=== PATIENT | male | born 1960 | race Caucasian/White ===

== ENCOUNTER 2018-08-08 23:31 | Emergency (ER) | payer SELFPAY ==
[2018-08-09] MEDS ORDERED: IBUPROFEN 400 MG TAB PO STA (00:09)
[2018-08-09] MEDS ORDERED: CLINDAMYCIN 150 MG CAP PO STA (00:10)
[2018-08-09] MEDS ORDERED: FAMOTIDINE 20 MG TAB PO STA (00:11)
[2018-08-09] MEDS ORDERED: diphenhydrAMINE 25 MG CAP PO STA (00:45)
[2018-08-09 00:51] VITALS: BP 176/83; PULSE 84; RESP 16; TEMP 97.5
--- NOTE | 2018-08-09 01:03 | ED ---
General Adult HPI - General Chief complaint: Chest Pain Stated complaint: Swollen tongue Time Seen by Provider: 08/09/18 00:00 Source: patient, RN notes reviewed Mode of arrival: ambulatory Limitations: no limitations - History of Present Illness Initial comments: This is a 58-year-old male who presents with complaints of swelling below his tongue this started earlier today he also has some chest pain today complaining of a states he was playing golf all day and believes he sore because of that. He states he has some bad teeth is inflammation of his gums that he is going to be seeing a dentist before when he gets back home to [place]. He denies any fevers chills nausea vomiting sweats or other symptoms at this time he does have aspirin ALLERGIES he is able to take Motrin without any problem he does have ALLERGIES to cephalexin. He does state he's been on clindamycin before. - Related Data Previous Rx's Medication Instructions Recorded Clindamycin [Cleocin] 150 mg PO Q6H #40 capsule 08/09/18 methylPREDNISolone Dose Pack 4 mg PO DIRECTED #21 package 08/09/18 [Medrol Dose Pack] Allergies Allergy/AdvReac Type Severity Reaction Status Date / Time aspirin Allergy Nausea & Verified 08/08/18 23:48 Vomiting & Diarrhea cephalexin [From Keflex] Allergy Rash/Hives Verified 08/08/18 23:48 Review of Systems ROS Statement: Those systems with pertinent positive or pertinent negative responses have been documented in the HPI. ROS Other: All systems not noted in ROS Statement are negative. Past Medical History Past Medical History: Diabetes Mellitus, Hyperlipidemia, Hypertension, Liver Disease Additional Past Medical History / Comment(s): tremors History of Any Multi-Drug Resistant Organisms: None Reported Past Surgical History: Cholecystectomy Past Psychological History: No Psychological Hx Reported Smoking Status: Current every day smoker Past Alcohol Use History: Occasional Past Drug Use History: None Reported General Exam - General Exam Comments Initial Comments: This is a well-developed well-nourished awake alert oriented 3 male Limitations: no limitations General appearance: alert, in no apparent distress Head exam: Present: atraumatic, normocephalic, normal inspection Eye exam: Present: normal appearance, PERRL, EOMI. Absent: scleral icterus, conjunctival injection, periorbital swelling ENT exam: Present: mucous membranes moist, other (Is evidence of edema to the floor the mouth inferior to the tongue. No open wounds or some evidence of gingival inflammation with eroded lower incisors.) Neck exam: Present: normal inspection, full ROM, other (Stridor JVD or bruits). Absent: tenderness, meningismus, lymphadenopathy Respiratory exam: Present: normal lung sounds bilaterally, chest wall tenderness (Reproducible tenderness palpation of the costochondral margin especially on the right also over the pectoralis muscles.). Absent: respiratory distress, wheezes, rales, rhonchi, stridor Cardiovascular Exam: Present: regular rate, normal rhythm, normal heart sounds. Absent: systolic murmur, diastolic murmur, rubs, gallop, clicks GI/Abdominal exam: Present: soft, normal bowel sounds. Absent: distended, tenderness, guarding, rebound, rigid Extremities exam: Present: normal inspection, full ROM, normal capillary refill. Absent: tenderness, pedal edema, joint swelling, calf tenderness Back exam: Present: normal inspection Neurological exam: Present: alert, oriented X3, CN II-XII intact Psychiatric exam: Present: normal affect, normal mood Skin exam: Present: warm, dry, intact, normal color. Absent: rash Course Vital Signs 08/08/18 23:44 Temperature 98.5 F Pulse Rate 96 Respiratory 18 Rate Blood Pressure 181/90 O2 Sat by Pulse 95 Oximetry EKG Findings - EKG Results: EKG: interpreted by SUPRIYA, sinus rhythm (Sinus rhythm rate of 91. Interval 140 QRS duration 84 QT since QTC 340/418 specific configuration in leads 1 and 3) Medical Decision Making - Medical Decision Making I did discuss the findings and the presentation with the patient including EKG findings which does seem to show evidence of an S-wave in 1 and a prominent Q- wave in lead 3 patient does not want to pursue any further evaluation at this time even though I did inform him that this at times can represent findings of a blood clot in the lung. He just this and wants to be treated for the inflammation is experiencing in his oral cavity will be discharged is agreed to accept the possible consequences of not pursuing any further testing. Disposition Clinical Impression: Gingivitis, Chest wall pain, Chest wall syndrome Disposition: HOME SELF-CARE Condition: Good Instructions (If sedation given, give patient instructions): Costochondritis (ED), Gingivitis (ED) Prescriptions: Clindamycin [Cleocin] 150 mg PO Q6H #40 capsule methylPREDNISolone Dose Pack [Medrol Dose Pack] 4 mg PO DIRECTED #21 package Is patient prescribed a controlled substance at d/c from ED?: No Referrals: None,Stated [Primary Care Provider] - 1-2 days
== END 2018-08-09 00:59 | disposition home or self-care (01) ==
LOC: EC 23:31
DX: R07.1 Chest pain on breathing (principal); R07.89 Other chest pain; K05.10 Chronic gingivitis, plaque induced; F17.200 Nicotine dependence, unspecified, uncomplicated; Z88.1 Allergy status to other antibiotic agents; Z88.6 Allergy status to analgesic agent
CPT/HCPCS: 99284

== ENCOUNTER → 2021-01-30 | Outpatient (CLI) | payer BC ==
[~2021-01-30] MED LIST: REGADENOSON 0.4 MG/5 ML SYRINGE IV ONE
--- NOTE | 2021-01-31 12:38 | NM ---
EXAMINATION TYPE: NM stress lexiscan cardiolite DATE OF EXAM: 01/31/2021 COMPARISON: NONE HISTORY: Chest pain TECHNIQUE: After the intravenous administration of 9.4 mCi Tc 99m Sestamibi - Cardiolite resting SPE CT images acquired 45 minutes post injection. The patient received 0.4mg Lexiscan, 26 mCi Tc 99m Sestamibi - Stress images obtained 40 minutes post injection FINDINGS: Review of stress and rest SPECT images demonstrates no distinct perfusion abnormality. Gated analysi s shows normal wall motion with an estimated left ventricular ejection fraction of 66 %. IMPRESSION: No scintigraphic evidence for reversible ischemia.
--- NOTE | 2021-02-01 14:51 | EST ---
EXERCISE STRESS AGE: 60 SEX: M HT: 5'8" WT: 190 lbs. PROTOCOL: Lexiscan STAGE: NA DURATION OF EXERCISE: NA HEART RATE REST: 71 BLOOD PRESSURE REST: 143/75 MAXIMUM HEART RATE ACHIEVED: 91 MAXIMUM BLOOD PRESSURE: 143/75 85% MPHR: 138 100% MPHR: 162 METS: NA INDICATIONS: Chest pain RESULTS: Baseline EKG revealed normal sinus rhythm with inferolateral ST-T abnormality. With Lexiscan administration, heart rate changed from 71-89 beats per minute. Blood pressure changed from 143/70 to 133/79. EKG remained inconclusive. Patient did not have any significant symptoms. By EKG criteria, this is an inconclusive Lexiscan stress test because of resting EKG changes. The nuclear scan results will be reported by the radiologist. TONI / JORGEN: [id number] /
== END | disposition home or self-care (01) ==
LOC: RADNMMAIN 08:05
PROVIDERS: ATTEND Family Medicine
DX: R07.9 Chest pain, unspecified (principal); I73.9 Peripheral vascular disease, unspecified; G25.0 Essential tremor
CPT/HCPCS: 93017; 78452; A9500

== ENCOUNTER 2021-03-27 03:38 | Emergency (ER) | payer BC ==
[2021-03-27 04:04] VITALS: TEMP 98.2
--- NOTE | 2021-03-27 04:15 | XR ---
EXAMINATION TYPE: XR chest 2V DATE OF EXAM: 03/27/2021 COMPARISON: NONE HISTORY: Cough TECHNIQUE: 2 views FINDINGS: There is some mild atelectasis right lung base. There is elevated right diaphragm. There ar e no hilar masses. Heart size is normal. There is no heart failure. There are chest leads. Bony thora x is intact IMPRESSION: There is some elevation of the right diaphragm with right basilar mild atelectasis. This could relate to some diaphragm paralysis. Normal heart.
[2021-03-27 04:20] LABS: Basophils # (A) 0.1 k/uL (0-0.2); Basophils % (A) 1 %; Eosinophils # (A) 0.1 k/uL (0-0.7); Eosinophils % (A) 1 %; Lymphocytes # (A) 2.5 k/uL (1.0-4.8); Lymphocytes % (A) 24 %; MCHC 34.2 g/dL (31.0-37.0); MCV 108.1 fL (80.0-100.0); Macrocytosis Moderate; Mean Platelet Volume 8.8; Monocytes # (A) 0.7 k/uL (0-1.0); Monocytes % (A) 6 %; Neutrophils # (A) 6.7 k/uL (1.3-7.7); Neutrophils % (A) 66 %; Platelet Count 150 k/uL (150-450); RDW 12.3 % (11.5-15.5); WBC 10.3 k/uL (3.8-10.6)
[2021-03-27 04:32] LABS: ALT 53 U/L (4-49); AST 59 U/L (17-59); African American GFR (CKD) >90 (>60 ml/min/1.73 sqM); Albumin 3.8 g/dL (3.5-5.0); Alkaline Phosphatase 67 U/L (38-126); Anion Gap 10 mmol/L; Blood Urea Nitrogen 16 mg/dL (9-20); Calcium 10.6 mg/dL (8.4-10.2); Carbon Dioxide 24 mmol/L (22-30); Chloride 103 mmol/L (98-107); Glucose 345 mg/dL (74-99); Magnesium 1.2 mg/dL (1.6-2.3); Non-African American GFR(CKD) >90 (>60 ml/min/1.73 sqM); Potassium 3.9 mmol/L (3.5-5.1); Sodium 137 mmol/L (137-145); Total Bilirubin 0.5 mg/dL (0.2-1.3)
[2021-03-27 04:39] LABS: Partial Thromboplastin Time 24.6 sec (22.0-30.0)
[2021-03-27 05:14] VITALS: BP 151/75; PULSE 64; RESP 18
[2021-03-27] MEDS ORDERED: SODIUM CHLORIDE 0.9% 1,000 ML IV ONE (05:19)
[2021-03-27] MEDS ORDERED: INSULIN REGULAR 100 UNIT/ML VIAL (IV) IV STA (05:19)
[2021-03-27 05:22] LABS: INR 1.1 (<1.2); Prothrombin Time 11.5 sec (9.0-12.0)
[2021-03-27] MEDS ORDERED: MAGNESIUM SULFATE-D5W PMX 1 GM in DEXTROSE/WATER 1 100ML.BAG IVPB ONE (05:55)
--- NOTE | 2021-03-27 06:21 | ED ---
Arrhythmia/Palpitations HPI - General Chief Complaint: Arrhythmia/Palpitations Stated Complaint: Chest Pain Time Seen by Provider: 03/27/21 03:53 Source: patient, EMS Mode of arrival: EMS Limitations: no limitations - History of Present Illness Initial Comments: This patient is 61-year-old man who presents with complaint that his heart was pounding and irregular. EMS was called and they report that the patient was in atrial fibrillation with a first placed him on the monitor. They report that the patient spontaneously converted after arriving here. Patient denies chest pain, diaphoresis, nausea or vomiting. Patient did have some dyspnea that he attributed to he states underlying asthma. He had taken albuterol. He states his breathing has resolved MD Complaint: rapid heart beat, irregular heart beat -: hour(s) Context: occurred during rest Associated Symptoms: denies other symptoms - Related Data Home Medications Medication Instructions Recorded Confirmed ALPRAZolam [Xanax] 0.5 mg PO DAILY PRN 03/27/21 03/27/21 Albuterol Sulfate [Ventolin HFA] 1 - 2 puff INHALATION RT-Q6H PRN 03/27/21 03/27/21 Atorvastatin Calcium [Lipitor] 20 mg PO HS 03/27/21 03/27/21 Escitalopram [Lexapro] 10 mg PO HS 03/27/21 03/27/21 Insulin Lispro [humaLOG Kwikpen] 18 - 22 unit SQ AC-BID 03/27/21 03/27/21 Metoprolol Succinate (ER) [Toprol 100 mg PO HS 03/27/21 03/27/21 Xl] Steroid Inhaler (Unknown) 1 dose INHALATION DIRECTED PRN 03/27/21 03/27/21 Topiramate [Topamax] 25 mg PO HS 03/27/21 03/27/21 traZODone HCL 50 mg PO HS 03/27/21 03/27/21 Previous Rx's Medication Instructions Recorded Magnesium Oxide [Mag-Ox] 400 mg PO DAILY #20 tablet 03/27/21 Allergies Allergy/AdvReac Type Severity Reaction Status Date / Time cephalexin [From Keflex] Allergy Rash/Hives Verified 03/27/21 06:35 aspirin AdvReac Nausea & Verified 03/27/21 06:35 Vomiting & Diarrhea Review of Systems ROS Statement: Those systems with pertinent positive or pertinent negative responses have been documented in the HPI. ROS Other: All systems not noted in ROS Statement are negative. Constitutional: Denies: fever, chills Respiratory: Reports: as per HPI, dyspnea. Denies: cough Cardiovascular: Reports: palpitations. Denies: chest pain, edema, syncope Gastrointestinal: Denies: abdominal pain, vomiting, diarrhea Genitourinary: Denies: dysuria, hematuria Musculoskeletal: Denies: back pain Skin: Denies: rash Neurological: Denies: headache, weakness, numbness Psychiatric: Reports: anxiety Past Medical History Past Medical History: Diabetes Mellitus, Hyperlipidemia, Hypertension, Liver Disease Additional Past Medical History / Comment(s): tremors History of Any Multi-Drug Resistant Organisms: None Reported Past Surgical History: Cholecystectomy Past Psychological History: No Psychological Hx Reported Past Alcohol Use History: Occasional Past Drug Use History: None Reported General Exam Limitations: no limitations General appearance: alert, in no apparent distress Head exam: Present: atraumatic, normocephalic Eye exam: Present: normal appearance. Absent: scleral icterus, conjunctival injection ENT exam: Present: normal oropharynx Neck exam: Present: normal inspection Respiratory exam: Present: normal lung sounds bilaterally. Absent: respiratory distress, wheezes, rales, rhonchi, stridor Cardiovascular Exam: Present: regular rate, normal rhythm, normal heart sounds. Absent: systolic murmur, diastolic murmur, rubs, gallop GI/Abdominal exam: Present: soft. Absent: distended, tenderness, guarding, rebound, rigid, mass Extremities exam: Present: normal inspection, normal capillary refill. Absent: pedal edema, calf tenderness Back exam: Present: normal inspection. Absent: CVA tenderness (R), CVA tenderness (L) Neurological exam: Present: alert Skin exam: Present: warm, dry, intact, normal color. Absent: rash Course Vital Signs 03/27/21 03/27/21 03:58 05:08 Temperature 98.2 F Pulse Rate 72 64 Respiratory 16 18 Rate Blood Pressure 162/90 151/75 O2 Sat by Pulse 98 98 Oximetry EKG Findings - EKG Results: EKG: interpreted by SUPRIYA, sinus rhythm (Rate 76 bpm), normal axis, normal QRS - Blocks, [place], Hypertrophy, ST Abn: Repolarization changes or abnormalities: nonspecific abnormality, ST segment, and/or T wave Medical Decision Making - Medical Decision Making Patient is 61-year-old man brought to have evaluation of palpitations and some dyspnea. The patient is feeling back at his baseline and is in normal sinus rhythm here. The patient may have had episode of atrial fibrillation and discussed appropriate further care and follow-up with cardiology, but he does not want stay in the hospital to have evaluation. - Lab Data Result diagrams: 03/27/21 03:50 03/27/21 03:50 Lab Results 03/27/21 03/27/21 03/27/21 Range/Units 03:50 03:50 03:50 WBC 10.3 (3.8-10.6) k/uL RBC 3.80 L (4.30-5.90) m/uL Hgb 14.0 (13.0-17.5) gm/dL Hct 41.0 (39.0-53.0) % MCV 108.1 H (80.0-100.0) fL MCH 37.0 H (25.0-35.0) pg MCHC 34.2 (31.0-37.0) g/dL RDW 12.3 (11.5-15.5) % Plt Count 150 (150-450) k/uL MPV 8.8 Neutrophils % 66 % Lymphocytes % 24 % Monocytes % 6 % Eosinophils % 1 % Basophils % 1 % Neutrophils # 6.7 (1.3-7.7) k/uL Lymphocytes # 2.5 (1.0-4.8) k/uL Monocytes # 0.7 (0-1.0) k/uL Eosinophils # 0.1 (0-0.7) k/uL Basophils # 0.1 (0-0.2) k/uL Macrocytosis Moderate PT 11.5 (9.0-12.0) sec INR 1.1 (<1.2) APTT 24.6 (22.0-30.0) sec Sodium 137 (137-145) mmol/L Potassium 3.9 (3.5-5.1) mmol/L Chloride 103 (98-107) mmol/L Carbon Dioxide 24 (22-30) mmol/L Anion Gap 10 mmol/L BUN 16 (9-20) mg/dL Creatinine 0.85 (0.66-1.25) mg/dL Est GFR (CKD-EPI)AfAm >90 (>60 ml/min/1.73 sqM) Est GFR (CKD-EPI)NonAf >90 (>60 ml/min/1.73 sqM) Glucose 345 H (74-99) mg/dL POC Glucose (mg/dL) (75-99) mg/dL POC Glu Cement Block Maker ID Calcium 10.6 H (8.4-10.2) mg/dL Magnesium 1.2 L (1.6-2.3) mg/dL Total Bilirubin 0.5 (0.2-1.3) mg/dL AST 59 (17-59) U/L ALT 53 H (4-49) U/L Alkaline Phosphatase 67 (38-126) U/L Troponin I (0.000-0.034) ng/mL Total Protein 7.0 (6.3-8.2) g/dL Albumin 3.8 (3.5-5.0) g/dL 03/27/21 03/27/21 Range/Units 03:50 07:03 WBC (3.8-10.6) k/uL RBC (4.30-5.90) m/uL Hgb (13.0-17.5) gm/dL Hct (39.0-53.0) % MCV (80.0-100.0) fL MCH (25.0-35.0) pg MCHC (31.0-37.0) g/dL RDW (11.5-15.5) % Plt Count (150-450) k/uL MPV Neutrophils % % Lymphocytes % % Monocytes % % Eosinophils % % Basophils % % Neutrophils # (1.3-7.7) k/uL Lymphocytes # (1.0-4.8) k/uL Monocytes # (0-1.0) k/uL Eosinophils # (0-0.7) k/uL Basophils # (0-0.2) k/uL Macrocytosis PT (9.0-12.0) sec INR (<1.2) APTT (22.0-30.0) sec Sodium (137-145) mmol/L Potassium (3.5-5.1) mmol/L Chloride (98-107) mmol/L Carbon Dioxide (22-30) mmol/L Anion Gap mmol/L BUN (9-20) mg/dL Creatinine (0.66-1.25) mg/dL Est GFR (CKD-EPI)AfAm (>60 ml/min/1.73 sqM) Est GFR (CKD-EPI)NonAf (>60 ml/min/1.73 sqM) Glucose (74-99) mg/dL POC Glucose (mg/dL) 207 H (75-99) mg/dL POC Glu Cement Block Maker Graeme Larkin Calcium (8.4-10.2) mg/dL Magnesium (1.6-2.3) mg/dL Total Bilirubin (0.2-1.3) mg/dL AST (17-59) U/L ALT (4-49) U/L Alkaline Phosphatase (38-126) U/L Troponin I <0.012 (0.000-0.034) ng/mL Total Protein (6.3-8.2) g/dL Albumin (3.5-5.0) g/dL Disposition Clinical Impression: Paroxysmal atrial fibrillation with RVR, Hyperglycemia, Hypomagnesemia Disposition: HOME SELF-CARE Condition: Good Instructions (If sedation given, give patient instructions): A-fib (Atrial Fibrillation) (ED) Prescriptions: Magnesium Oxide [Mag-Ox] 400 mg PO DAILY #20 tablet Is patient prescribed a controlled substance at d/c from ED?: No Referrals: Mateo Milton MD [Primary Care Provider] - 1-2 days Jeromy Chen MD [STAFF PHYSICIAN] - 1-2 days
[2021-03-27 07:04] LABS: Glucose,Whole Blood 207 mg/dL (75-99)
== END 2021-03-27 07:05 | disposition home or self-care (01) ==
LOC: EC 03:38
DX: I48.0 Paroxysmal atrial fibrillation (principal); R07.9 Chest pain, unspecified; E83.42 Hypomagnesemia; E11.9 Type 2 diabetes mellitus without complications; I10 Essential (primary) hypertension; Z88.1 Allergy status to other antibiotic agents; Z88.6 Allergy status to analgesic agent
CPT/HCPCS: 99285 ×2; 96365 ×2; 36415; 93005; 80053; 83735; 84484; 85025; 85610; 85730; 71046; J3475

== ENCOUNTER 2022-11-05 11:16 | Emergency (ER) | payer BC, MEDICARE ==
[2022-11-05 11:22] VITALS: TEMP 97.9
[2022-11-05 11:43] VITALS: RESP 20
[2022-11-05 11:58] LABS: Basophils % (A) 0 %; Eosinophils # (A) 0.1 k/uL (0-0.7); Eosinophils % (A) 0 %; HCT 44.7 % (39.0-53.0); HGB 15.2 gm/dL (13.0-17.5); Lymphocytes # (A) 2.1 k/uL (1.0-4.8); Lymphocytes % (A) 16 %; MCH 34.2 pg (25.0-35.0); MCV 100.7 fL (80.0-100.0); Mean Platelet Volume 8.9; Monocytes # (A) 0.6 k/uL (0-1.0); Monocytes % (A) 5 %; Neutrophils # (A) 10.3 k/uL (1.3-7.7); Neutrophils % (A) 78 %; Platelet Count 220 k/uL (150-450); RBC 4.44 m/uL (4.30-5.90); RDW 13.1 % (11.5-15.5); WBC 13.3 k/uL (3.8-10.6)
[2022-11-05] MEDS ORDERED: SODIUM CHLORIDE 0.9% 1,000 ML IV STA (11:59)
--- NOTE | 2022-11-05 12:06 | ED ---
General Adult HPI - General Chief complaint: Abdominal Pain Stated complaint: Abd Pain Time Seen by Provider: 11/05/22 11:21 Source: patient, EMS Mode of arrival: EMS Limitations: no limitations - History of Present Illness Initial comments: Dictation was produced using [employer] dictation software. please excuse any grammatical, word or spelling errors. Chief Complaint: 62 y old male presents with pain History of Present Illness: Patient is 62-year-old male presents emergency department for abdominal pain. History of diabetes dyslipidemia hypertension number disease. Patient states that he is having chronic abdominal pain. He was seen at [facility] and seen GI specialist had multiple CTs with no abnormalities noted. Denies any nausea. States that is why abdomen. The ROS documented in this emergency department record has been reviewed and confirmed by me. Those systems with pertinent positive or negative responses have been documented in the HPI. All other systems are other negative and/or noncontributory. - Related Data Home Medications Medication Instructions Recorded Confirmed ALPRAZolam [Xanax] 0.5 mg PO DAILY PRN 03/27/21 03/27/21 Albuterol Sulfate [Ventolin HFA] 1 - 2 puff INHALATION RT-Q6H PRN 03/27/21 03/27/21 Atorvastatin Calcium [Lipitor] 20 mg PO HS 03/27/21 03/27/21 Escitalopram [Lexapro] 10 mg PO HS 03/27/21 03/27/21 Insulin Lispro [humaLOG Kwikpen] 18 - 22 unit SQ AC-BID 03/27/21 03/27/21 Metoprolol Succinate (ER) [Toprol 100 mg PO HS 03/27/21 03/27/21 Xl] Steroid Inhaler (Unknown) 1 dose INHALATION DIRECTED PRN 03/27/21 03/27/21 Topiramate [Topamax] 25 mg PO HS 03/27/21 03/27/21 traZODone HCL 50 mg PO HS 03/27/21 03/27/21 Previous Rx's Medication Instructions Recorded Magnesium Oxide [Mag-Ox] 400 mg PO DAILY #20 tablet 03/27/21 Morphine Sulfate Ir [MSIR] 15 mg PO Q8H PRN 3 Days #9 tab 11/05/22 Allergies Allergy/AdvReac Type Severity Reaction Status Date / Time cephalexin [From Keflex] Allergy Rash/Hives Verified 11/05/22 11:22 aspirin AdvReac Nausea & Verified 11/05/22 11:22 Vomiting & Diarrhea Review of Systems ROS Statement: Those systems with pertinent positive or pertinent negative responses have been documented in the HPI. ROS Other: All systems not noted in ROS Statement are negative. Past Medical History Past Medical History: Diabetes Mellitus, Hyperlipidemia, Hypertension, Liver Disease Additional Past Medical History / Comment(s): tremors History of Any Multi-Drug Resistant Organisms: None Reported Past Surgical History: Cholecystectomy Past Psychological History: No Psychological Hx Reported Smoking Status: Current every day smoker Past Alcohol Use History: Occasional Past Drug Use History: Marijuana General Exam - General Exam Comments Initial Comments: PHYSICAL EXAM: General Impression: Alert and oriented x3, not in acute distress, pinpoint pupils HEENT: Normocephalic atraumatic, extra-ocular movements intact, pupils equal and reactive to light bilaterally, mucous membranes moist. Cardiovascular: Heart regular rate and rhythm Chest: Able to complete full sentences, no retractions, no tachypnea Abdomen: abdomen soft, non-tender, non-distended, no organomegaly Musculoskeletal: Pulses present and equal in all extremities, no peripheral edema Motor: no focal deficits noted Neurological: CN II-XII grossly intact, no focal motor or sensory deficits noted Skin: Intact with no visualized rashes Psych: Normal affect and mood Limitations: no limitations Course Vital Signs 11/05/22 11/05/22 11/05/22 11:19 11:22 13:30 Temperature 97.9 F Pulse Rate 84 77 85 Respiratory 24 20 20 Rate Blood Pressure 159/113 169/101 149/100 O2 Sat by Pulse 100 98 97 Oximetry Medical Decision Making - Medical Decision Making Was pt. sent in by a medical professional or institution (, PA, RESOURCE AGENT, urgent care, hospital, or usp...) When possible be specific @ -No Did you speak to anyone other than the patient for history (EMS, parent, family, police, friend...)? What history was obtained from this source @ -No Did you review nursing and triage notes (agree or disagree)? Why? @ -I reviewed and agree with nursing and triage notes Were old charts reviewed (outside hosp., previous admission, EMS record, old EKG, old radiological studies, urgent care reports/EKG's, usp records)? Report findings @ -No old charts were reviewed Differential Diagnosis (chest pain, altered mental status, abdominal pain women, abdominal pain men, vaginal bleeding, musculoskeletal, weakness, fever, dyspnea, syncope, headache, dizziness, GI bleed, back pain, seizure, CVA, palpatations, mental health)? @ -Differential Abdominal Pain Men: Appendicitis, cholecystitis, diverticulosis, ischemic bowel, pancreatitis, hepatitis, UTI, gastroenteritis, AAA, incarcerated hernia, bowel obstruction, constipation, inflammatory bowel, hepatitis, peptic ulcer disease, splenic infarction, perforated viscus, testicular torsion, this is not meant to be an all-inclusive list EKG interpreted by me (3pts min.). @ -None done X-rays interpreted by me (1pt min.). @ -Abdominal x-ray shows no acute processes CT interpreted by me (1pt min.). @ -None done U/S interpreted by me (1pt. min.). @ -None done What testing was considered but not performed or refused? (CT, X-rays, U/S, labs)? Why? @ -None What meds were considered but not given or refused? Why? @ -None Did you discuss the management of the patient with other professionals (professionals i.e. , PA, RESOURCE AGENT, lab, RT, psych nurse, social work assistant, caustic plant worker, teacher, patient safety officer, case technician)? Give summary @ -No Was smoking cessation discussed for >3mins.? @ -No Was critical care preformed (if so, how long)? @ -No Were there social determinants of health that impacted care today? How? (Homelessness, low income, unemployed, alcoholism, drug addiction, transportation, low edu. Level, literacy, decrease access to med. care, senior living, rehab)? @ -No Was there de-escalation of care discussed even if they declined (Discuss DNR or withdrawal of care, Hospice)? DNR status @ -No What co-morbidities impacted this encounter? (DM, HTN, Smoking, COPD, CAD, Cancer, CVA, ARF, Chemo, Hep., AIDS, mental health diagnosis, sleep apnea, morbid obesity)? @ -None Was patient admitted / discharged? Hospital course, mention meds given and route, prescriptions, significant lab abnormalities, going to OR and other pertinent info. @ -62 y Old male presents emergency Department with acute on chronic abdominal pain. Patient has been evaluated on an outpatient basis by a specialist in no apparent answer for what is causing his symptoms. Laboratory evaluation is unremarkable. Vital signs within acceptable limits. X-rays negative. Disposition options were discussed. He is agreeable with discharge. He continues to contact GI specialist regarding his symptoms. He already been evaluated in the office has pending MRI. Return precautions discussed. Patient agreeable with disposition. Undiagnosed new problem with uncertain prognosis? @ -No Drug Therapy requiring intensive monitoring for toxicity (Heparin, Nitro, Insulin, Cardizem)? @ -No Were any procedures done? @ -No Diagnosis/symptom? Acute, or Chronic, or Acute on Chronic? Uncomplicated (without systemic symptoms) or Complicated (systemic symptoms)? @ -chronic abdominal pain Side effects of treatment? @ -No Exacerbation, Progression, or Severe Exacerbation? @ -No Poses a threat to life or bodily function? How? (Chest pain, [place], [place], pneumonia, PE, COPD, DKA, ARF, appy, cholecystitis, CVA, Diverticulitis, Homicidal, Suicidal, threat to staff... and all critical care pts) @ -No - Lab Data Result diagrams: 11/05/22 11:24 11/05/22 11:24 Lab Results 11/05/22 11/05/22 Range/Units 11:24 11:24 WBC 13.3 H (3.8-10.6) k/uL RBC 4.44 (4.30-5.90) m/uL Hgb 15.2 (13.0-17.5) gm/dL Hct 44.7 (39.0-53.0) % MCV 100.7 H (80.0-100.0) fL MCH 34.2 (25.0-35.0) pg MCHC 34.0 (31.0-37.0) g/dL RDW 13.1 (11.5-15.5) % Plt Count 220 (150-450) k/uL MPV 8.9 Neutrophils % 78 % Lymphocytes % 16 % Monocytes % 5 % Eosinophils % 0 % Basophils % 0 % Neutrophils # 10.3 H (1.3-7.7) k/uL Lymphocytes # 2.1 (1.0-4.8) k/uL Monocytes # 0.6 (0-1.0) k/uL Eosinophils # 0.1 (0-0.7) k/uL Basophils # 0.0 (0-0.2) k/uL Sodium 141 (137-145) mmol/L Potassium 4.4 (3.5-5.1) mmol/L Chloride 109 H (98-107) mmol/L Carbon Dioxide 18 L (22-30) mmol/L Anion Gap 14 mmol/L BUN 16 (9-20) mg/dL Creatinine 0.63 L (0.66-1.25) mg/dL Est GFR (CKD-EPI)AfAm >90 (>60 ml/min/1.73 sqM) Est GFR (CKD-EPI)NonAf >90 (>60 ml/min/1.73 sqM) Glucose 204 H (74-99) mg/dL Calcium 11.2 H (8.4-10.2) mg/dL Total Bilirubin 0.9 (0.2-1.3) mg/dL AST 27 (17-59) U/L ALT 23 (4-49) U/L Alkaline Phosphatase 96 (38-126) U/L Total Protein 8.8 H (6.3-8.2) g/dL Albumin 4.6 (3.5-5.0) g/dL Lipase 238 (23-300) U/L Disposition Clinical Impression: Abdominal pain Disposition: HOME SELF-CARE Condition: Fair Instructions (If sedation given, give patient instructions): Abdominal Pain (ED) Prescriptions: Morphine Sulfate Ir [MSIR] 15 mg PO Q8H PRN 3 Days #9 tab PRN Reason: Severe Pain Is patient prescribed a controlled substance at d/c from ED?: Yes If prescribed controlled substance>3 days was MAPS reviewed?: Prescribed <3 Days Referrals: Anjel Patel MD [Primary Care Provider] - 1-2 days Ellen Dumont MD [STAFF PHYSICIAN] - 1-2 days Time of Disposition: 14:30
[2022-11-05 12:09] LABS: ALT 23 U/L (4-49); AST 27 U/L (17-59); African American GFR (CKD) >90 (>60 ml/min/1.73 sqM); Albumin 4.6 g/dL (3.5-5.0); Alkaline Phosphatase 96 U/L (38-126); Anion Gap 14 mmol/L; Blood Urea Nitrogen 16 mg/dL (9-20); Calcium 11.2 mg/dL (8.4-10.2); Carbon Dioxide 18 mmol/L (22-30); Chloride 109 mmol/L (98-107); Glucose 204 mg/dL (74-99); Lipase 238 U/L (23-300); Non-African American GFR(CKD) >90 (>60 ml/min/1.73 sqM); Potassium 4.4 mmol/L (3.5-5.1); Sodium 141 mmol/L (137-145); Total Bilirubin 0.9 mg/dL (0.2-1.3); Total Protein 8.8 g/dL (6.3-8.2)
--- NOTE | 2022-11-05 12:33 | XR ---
EXAMINATION TYPE: XR abdomen 1V DATE OF EXAM: 11/05/2022 COMPARISON: NONE HISTORY: Abdominal pain TECHNIQUE: One view abdominal series FINDINGS: The osseous structures are intact. The bowel gas pattern is nonspecific. Scoliotic curve of the spin e with diffuse osteopenia and multilevel degenerative change. Elevation right hemidiaphragm. Bilatera l hip arthropathy. Vascular calcifications. Soft tissue calcification adjacent to right greater troch anter. IMPRESSION: 1. Nonspecific abdomen.
[2022-11-05 13:38] VITALS: BP 149/100; PULSE 85
[2022-11-05 14:34] LABS: Amphetamine Screen,Urine Not Detected (NotDetected); Barbiturate Screen,Urine Not Detected (NotDetected); Benzodiazepines Screen,Urine Not Detected (NotDetected); Cocaine Screen,Urine Not Detected (NotDetected); Methadone Screen, Urine Not Detected (NotDetected); Opiate Screen,Urine Detected (NotDetected); Oxycodone Screen, Urine Not Detected (NotDetected); Phencyclidine Screen,Urine Not Detected (NotDetected); Tricyclic Antidepressant,Urine Not Detected (NotDetected); Urn Cannabinoid Scrn Detected (NotDetected)
== END 2022-11-05 14:38 | disposition home or self-care (01) ==
LOC: EC 11:16
DX: R10.9 Unspecified abdominal pain (principal); E11.9 Type 2 diabetes mellitus without complications; E78.5 Hyperlipidemia, unspecified; I10 Essential (primary) hypertension; F17.200 Nicotine dependence, unspecified, uncomplicated; Z79.4 Long term (current) use of insulin; Z79.899 Other long term (current) drug therapy; Z88.6 Allergy status to analgesic agent; Z88.1 Allergy status to other antibiotic agents
CPT/HCPCS: 36415; 74018; 80053; 80306; 83690; 85025; 96360; 99284

== ENCOUNTER → 2022-11-07 | Outpatient (CLI) | payer BC, MEDICARE ==
--- NOTE | 2022-11-11 11:43 | MR ---
EXAMINATION TYPE: MR pancreas wo/w con DATE OF EXAM: 11/07/2022 10:28 AM CLINICAL INDICATION:Male, 62 years old with history of R10.9 abd pain; PHH, Abdomen pain COMPARISON: Ultrasound 09/02/2022 TECHNIQUE: Multiplanar multi-sequence imaging was performed without contrast. Post contrast imaging was performed. Post IV contrast subtraction images were also submitted for review. IV Contrast: 6.5 cc Gadavist FINDINGS: LOWER CHEST: No gross irregularity. ABDOMEN Liver: No evidence for hepatic steatosis or cirrhosis. High T2 signal lesions in the dome of the live r. These progressively enhance on delayed imaging. Findings suggestive of a benign etiology such as a hemangioma. Gallbladder and Bile ducts: There is a cystic duct remnant present. The common hepatic duct measures up to 8 mm. The common bile duct measures up to 8 mm. Some irregular wall tapering best appreciated o n series 301 image 25 near the papilla. Pancreas: No ductal dilation. No evidence for solid mass. Spleen: Normal for size. Adrenal glands: Unremarkable. Kidneys: No evidence for obstructive uropathy. No No suspicious renal masses. Stomach and Bowel: No evidence for bowel wall thickening or evidence for obstruction.. Peritoneum: No evidence of pneumoperitoneum or free fluid. Vasculature: No aortic aneurysm. Musculoskeletal: The osseous structures appear intact. Lymph Nodes: No gross evidence for lymphadenopathy. Abdominal wall: Unremarkable. IMPRESSION: 1. No evidence for acute process to explain the patient's pain. 2. Postcholecystectomy changes with appropriate dilation of the biliary system for post cholecystect jac physiology. Cystic duct remnant noted. 3. Irregular tapering near the papilla in the common bile duct. ERCP for direct visualization should be considered to rule out underlying lesion. 4. The main pancreatic duct and pancreas appear within normal limits. 5. Suspected hemangiomas in the dome of the liver on the right.
== END | disposition home or self-care (01) ==
LOC: RADMRIMAIN 09:19
PROVIDERS: ATTEND Internal Medicine Gastroenterology
DX: R10.9 Unspecified abdominal pain (principal); Z90.49 Acquired absence of other specified parts of digestive tract
CPT/HCPCS: 74183; A9585

== ENCOUNTER 2023-01-04 15:42 | Observation (INO) | payer BC, MEDICARE ==
[2023-01-04] MEDS ORDERED: ONDANSETRON 4 MG/2 ML VIAL IVP STA (16:18)
[2023-01-04] MEDS ORDERED: SODIUM CHLORIDE 0.9% 1,000 ML IV STA ×2 (16:18→18:40)
[2023-01-04] MEDS ORDERED: PANTOPRAZOLE 40 MG/10 ML VIAL IVP STA (16:18)
[2023-01-04] MEDS ORDERED: MORPHINE SULFATE 4 MG/ML SYRINGE IVP STA (16:19)
[2023-01-04 17:12] LABS: Basophils % (A) 0 %; Eosinophils # (A) 0.1 k/uL (0-0.7); Eosinophils % (A) 1 %; HCT 42.8 % (39.0-53.0); HGB 14.6 gm/dL (13.0-17.5); Lymphocytes # (A) 3.2 k/uL (1.0-4.8); Lymphocytes % (A) 26 %; MCH 34.1 pg (25.0-35.0); MCHC 34.1 g/dL (31.0-37.0); MCV 99.8 fL (80.0-100.0); Mean Platelet Volume 8.6; Monocytes # (A) 0.6 k/uL (0-1.0); Monocytes % (A) 5 %; Neutrophils # (A) 8.2 k/uL (1.3-7.7); Neutrophils % (A) 66 %; Platelet Count 283 k/uL (150-450); RBC 4.29 m/uL (4.30-5.90); RDW 13.2 % (11.5-15.5); WBC 12.5 k/uL (3.8-10.6)
--- NOTE | 2023-01-04 17:12 | ED ---
General Adult HPI - General Chief complaint: Abdominal Pain Stated complaint: sob losing weight stomach pain Time Seen by Provider: 01/04/23 15:55 Source: patient, RN notes reviewed, old records reviewed Mode of arrival: ambulatory Limitations: no limitations - History of Present Illness Initial comments: Patient is a 62-year-old male who presents emergency Department with chronic abdominal pain. States he has lost a significant amount of weight over the last multiple months. Has received an extensive workup outpatient for this intractable abdominal pain of unknown etiology. This includes EGDs, colonoscopies, MRIs, CTs, evaluation by GI specialist Dr. Dumont as well [facility]. No clear etiology for the symptoms at this time. Presents with continuing of his pain. Endorses mild nausea. Endorses diarrhea. Denies constipation. Prior history of alcohol abuse. Denies any chest pain or shortness of breath. No cardiac history. No urinary complaints. Endorses mild nausea at this time. Primary complaint is abdominal pain which he states is diffuse. It is unremarkable to home. Has no other acute complaints at this time. - Related Data Home Medications Medication Instructions Recorded Confirmed ALPRAZolam [Xanax] 0.5 mg PO DAILY PRN 03/27/21 03/27/21 Albuterol Sulfate [Ventolin HFA] 1 - 2 puff INHALATION RT-Q6H PRN 03/27/21 03/27/21 Atorvastatin Calcium [Lipitor] 20 mg PO HS 03/27/21 03/27/21 Escitalopram [Lexapro] 10 mg PO HS 03/27/21 03/27/21 Insulin Lispro [humaLOG Kwikpen] 18 - 22 unit SQ AC-BID 03/27/21 03/27/21 Metoprolol Succinate (ER) [Toprol 100 mg PO HS 03/27/21 03/27/21 Xl] Steroid Inhaler (Unknown) 1 dose INHALATION DIRECTED PRN 03/27/21 03/27/21 Topiramate [Topamax] 25 mg PO HS 03/27/21 03/27/21 traZODone HCL 50 mg PO HS 03/27/21 03/27/21 Previous Rx's Medication Instructions Recorded Magnesium Oxide [Mag-Ox] 400 mg PO DAILY #20 tablet 03/27/21 Morphine Sulfate Ir [MSIR] 15 mg PO Q8H PRN 3 Days #9 tab 11/05/22 Allergies Allergy/AdvReac Type Severity Reaction Status Date / Time cephalexin [From Keflex] Allergy Rash/Hives Verified 01/04/23 15:51 aspirin AdvReac Nausea & Verified 01/04/23 15:51 Vomiting & Diarrhea Review of Systems ROS Statement: Those systems with pertinent positive or pertinent negative responses have been documented in the HPI. Review of Systems: CONST: Denies fever EYES: Denies blurry vision ENT: Denies nasal congestion C/V: Denies Chest pain RESP: Denies shortness of breath GI: Endorses abdominal pain : Denies dysuria SKIN: Denies rash. MSK: Denies joint pain. NEURO: Denies headache ROS Other: All systems not noted in ROS Statement are negative. Past Medical History Past Medical History: Diabetes Mellitus, Hyperlipidemia, Hypertension, Liver Disease Additional Past Medical History / Comment(s): tremors History of Any Multi-Drug Resistant Organisms: None Reported Past Surgical History: Cholecystectomy Past Psychological History: No Psychological Hx Reported Smoking Status: Current every day smoker Past Alcohol Use History: Occasional Past Drug Use History: Marijuana General Exam - General Exam Comments Initial Comments: General: Appears in no acute distress. HEAD: Normal with no signs of head trauma. EYES: PERRLA, EOMI, conjunctiva normal, no discharge. ENT: Hearing grossly intact, normal oropharynx. RESPIRATORY: Clear breath sounds bilaterally. No wheezes, rales, or rhonchi. C/V: Regular rate and rhythm. S1 and S2 auscultated, no edema, peripheral pulses 2+ and intact throughout ABD: Abdomen soft, nondistended. No focal tenderness to palpation. Generalized discomfort on palpation. No guarding. No rebound tenderness. No peritoneal signs. EXT: Normal range of motion, no obvious deformity SKIN: No rashes or lesions observed on exposed skin. NEURO: Alert and oriented 4. Limitations: no limitations Course Vital Signs 01/04/23 15:47 Temperature 98.5 F Pulse Rate 96 Respiratory 20 Rate Blood Pressure 133/76 O2 Sat by Pulse 100 Oximetry Medical Decision Making - Medical Decision Making Was pt. sent in by a medical professional or institution (, PA, BACK ORDER CLERK, urgent care, hospital, or detention...) When possible be specific @ -No Did you speak to anyone other than the patient for history (EMS, parent, family, police, friend...)? What history was obtained from this source @ -Patient's to AIDS with patient's past medical history. Did you review nursing and triage notes (agree or disagree)? Why? @ -I reviewed and agree with nursing and triage notes Were old charts reviewed (outside hosp., previous admission, EMS record, old EKG, old radiological studies, urgent care reports/EKG's, detention records)? Report findings @ -Old charts reviewed Differential Diagnosis (chest pain, altered mental status, abdominal pain women, abdominal pain men, vaginal bleeding, weakness, fever, dyspnea, syncope, headache, dizziness, GI bleed, back pain, seizure, CVA, palpatations, mental health, musculoskeletal)? @ -Differential Abdominal Pain Men: Appendicitis, cholecystitis, diverticulosis, ischemic bowel, pancreatitis, hepatitis, UTI, gastroenteritis, AAA, incarcerated hernia, bowel obstruction, constipation, inflammatory bowel, hepatitis, peptic ulcer disease, splenic infarction, perforated viscus, testicular torsion, this is not meant to be an all-inclusive list EKG interpreted by me (3pts min.). @ -As above X-rays interpreted by me (1pt min.). @ -None done CT interpreted by me (1pt min.). @ -CT imaging reveals no obvious acute intra-abdominal process. U/S interpreted by me (1pt. min.). @ -None done What testing was considered but not performed or refused? (CT, X-rays, U/S, labs)? Why? @ -None What meds were considered but not given or refused? Why? @ -None Did you discuss the management of the patient with other professionals (professionals i.e. , PA, BACK ORDER CLERK, lab, RT, psych nurse, social media marketing specialist, combination machine tender, teacher, parachute/combatant diver officer, telephonic case manager)? Give summary @ -I discussed the case with the admitting team, Kelli of [facility] who accepted the patient. [facility] admits for Jorge. Was smoking cessation discussed for >3mins.? @ -No Was critical care preformed (if so, how long)? @ -No Were there social determinants of health that impacted care today? How? (Homele ssness, low income, unemployed, alcoholism, drug addiction, transportation, low edu. Level, literacy, decrease access to med. care, long term, rehab)? @ -No Was there de-escalation of care discussed even if they declined (Discuss DNR or withdrawal of care, Hospice)? DNR status @ -No What co-morbidities impacted this encounter? (DM, HTN, Smoking, COPD, CAD, Cancer, CVA, ARF, Chemo, Hep., AIDS, mental health diagnosis, sleep apnea, morbid obesity)? @ -Chronic abdominal pain of unknown etiology Was patient admitted / discharged? Hospital course, mention meds given and route, prescriptions, significant lab abnormalities, going to OR and other pertinent info. @ -Based on the patient's presentation and physical exam, patient presents complaining of acute on chronic abdominal pain with some mild nausea. Patient has received an extensive workup in the past without any clear etiology for his symptoms. Seems to be continued pain. Prior workup including MRIs, EGD, colonoscopy, follow-up with GI [facility] well [facility]. No clear etiology. Presents today for continued abdominal pain that seems slightly worse today. Patient also endorses losing weight over the last few months. We will obtain abdominal lasts a CT abdomen and pelvis. Patient was in agreement this plan. Vital signs within acceptable limits. He will be symptomatically treated with IV fluids, morphine, Zofran, Protonix. According to our records, patient's weight is decreased from previous visits. In March 2021, patient weighed 88 kg. November 2022 patient weight 64 kg. Currently weighs 57 kg. EKG showed no signs of acute ischemia.CT imaging unremarkable. Patient's labs remarkable for mild leukocytosis of 12 which is likely reactive. Patient has a slight lactic acidosis of 2.1. Patient does have elevated amylase and lipase of 293 and 1000 respectively. On reevaluation, patient is feeling improved following analgesia medications. We discussed his workup. We will admit the patient for uncomplicated pancreatitis. Patient was in agreement with this plan. I discussed the case with the admitting team, Kelli of [facility] who accepted the patient. Patient started on clear liquid diet. Zofran, analgesia medications as needed. Maintenance fluids started. Patient was in agreement this plan. Undiagnosed new problem with uncertain prognosis? @ -No Drug Therapy requiring intensive monitoring for toxicity (Heparin, Nitro, Insulin, Cardizem)? @ -No Were any procedures done? @ -No Diagnosis/symptom? @ -Pancreatitis Acute, or Chronic, or Acute on Chronic? @ -Acute Uncomplicated (without systemic symptoms) or Complicated (systemic symptoms)? @ -Complicated Side effects of treatment? @ -none Exacerbation, Progression, or Severe Exacerbation] @ -no Poses a threat to life or bodily function? @ -Possibly, yes - Lab Data Result diagrams: 01/04/23 16:24 01/04/23 16:24 Lab Results 01/04/23 01/04/23 01/04/23 Range/Units 16:24 16:24 16:24 WBC 12.5 H (3.8-10.6) k/uL RBC 4.29 L (4.30-5.90) m/uL Hgb 14.6 (13.0-17.5) gm/dL Hct 42.8 (39.0-53.0) % MCV 99.8 (80.0-100.0) fL MCH 34.1 (25.0-35.0) pg MCHC 34.1 (31.0-37.0) g/dL RDW 13.2 (11.5-15.5) % Plt Count 283 (150-450) k/uL MPV 8.6 Neutrophils % 66 % Lymphocytes % 26 % Monocytes % 5 % Eosinophils % 1 % Basophils % 0 % Neutrophils # 8.2 H (1.3-7.7) k/uL Lymphocytes # 3.2 (1.0-4.8) k/uL Monocytes # 0.6 (0-1.0) k/uL Eosinophils # 0.1 (0-0.7) k/uL Basophils # 0.0 (0-0.2) k/uL PT 12.0 (10.0-12.5) sec INR 1.1 (<1.2) APTT 28.4 (22.0-30.0) sec Sodium 139 (137-145) mmol/L Potassium 4.4 (3.5-5.1) mmol/L Chloride 104 (98-107) mmol/L Carbon Dioxide 22 (22-30) mmol/L Anion Gap 13 mmol/L BUN 16 (9-20) mg/dL Creatinine 0.59 L (0.66-1.25) mg/dL Est GFR (CKD-EPI)AfAm >90 (>60 ml/min/1.73 sqM) Est GFR (CKD-EPI)NonAf >90 (>60 ml/min/1.73 sqM) Glucose 128 H (74-99) mg/dL POC Glucose (mg/dL) (70-110) mg/dL POC Glu Finished Cloth Checker ID Plasma Lactic Acid Adolph (0.7-2.0) mmol/L Calcium 10.5 H (8.4-10.2) mg/dL Total Bilirubin 0.9 (0.2-1.3) mg/dL Conjugated Bilirubin 0.0 (0.0-0.3) mg/dL Unconjugated Bilirubin 0.5 (0.0-1.1) mg/dL Delta Bilirubin 0.4 H (0.0-0.2) mg/dL AST 38 (17-59) U/L ALT 25 (4-49) U/L Alkaline Phosphatase 79 (38-126) U/L Total Protein 8.4 H (6.3-8.2) g/dL Albumin 4.4 (3.5-5.0) g/dL Amylase 293 H (30-110) U/L Lipase 1074 H (23-300) U/L 01/04/23 01/04/23 Range/Units 16:24 18:36 WBC (3.8-10.6) k/uL RBC (4.30-5.90) m/uL Hgb (13.0-17.5) gm/dL Hct (39.0-53.0) % MCV (80.0-100.0) fL MCH (25.0-35.0) pg MCHC (31.0-37.0) g/dL RDW (11.5-15.5) % Plt Count (150-450) k/uL MPV Neutrophils % % Lymphocytes % % Monocytes % % Eosinophils % % Basophils % % Neutrophils # (1.3-7.7) k/uL Lymphocytes # (1.0-4.8) k/uL Monocytes # (0-1.0) k/uL Eosinophils # (0-0.7) k/uL Basophils # (0-0.2) k/uL PT (10.0-12.5) sec INR (<1.2) APTT (22.0-30.0) sec Sodium (137-145) mmol/L Potassium (3.5-5.1) mmol/L Chloride (98-107) mmol/L Carbon Dioxide (22-30) mmol/L Anion Gap mmol/L BUN (9-20) mg/dL Creatinine (0.66-1.25) mg/dL Est GFR (CKD-EPI)AfAm (>60 ml/min/1.73 sqM) Est GFR (CKD-EPI)NonAf (>60 ml/min/1.73 sqM) Glucose (74-99) mg/dL POC Glucose (mg/dL) 88 (70-110) mg/dL POC Glu Finished Cloth Checker ID Lacie Loza Plasma Lactic Acid Adolph 2.1 H* (0.7-2.0) mmol/L Calcium (8.4-10.2) mg/dL Total Bilirubin (0.2-1.3) mg/dL Conjugated Bilirubin (0.0-0.3) mg/dL Unconjugated Bilirubin (0.0-1.1) mg/dL Delta Bilirubin (0.0-0.2) mg/dL AST (17-59) U/L ALT (4-49) U/L Alkaline Phosphatase (38-126) U/L Total Protein (6.3-8.2) g/dL Albumin (3.5-5.0) g/dL Amylase (30-110) U/L Lipase (23-300) U/L - EKG Data -: EKG Interpreted by Me EKG Comments: 12-lead Electrocardiogram Interpretation Note EKG was reviewed and interpreted by myself. 12-lead ECG performed at 1706 is interpreted by me as revealing normal sinus rhythm at a rate of 68 beats per minute. [place] is normal. There were no ST or T wave abnormalities to suggest myocardial ischemia or injury. R wave progression across the precordium was sa tisfactory. By my interpretation this EKG is non-diagnostic for acute ischemia. Disposition Clinical Impression: Pancreatitis, acute Disposition: ADMITTED IP TO THIS HOSP Condition: Stable Referrals: Bill Hernandez MD [REFERRING] - 1-2 days Time of Disposition: 18:35
[2023-01-04 17:13] LABS: INR 1.1 (<1.2); Partial Thromboplastin Time 28.4 sec (22.0-30.0)
[2023-01-04 17:15] LABS: ALT 25 U/L (4-49); AST 38 U/L (17-59); African American GFR (CKD) >90 (>60 ml/min/1.73 sqM); Albumin 4.4 g/dL (3.5-5.0); Alkaline Phosphatase 79 U/L (38-126); Amylase 293 U/L (30-110); Anion Gap 13 mmol/L; Bilirubin, Delta 0.4 mg/dL (0.0-0.2); Bilirubin,Unconjugated 0.5 mg/dL (0.0-1.1); Blood Urea Nitrogen 16 mg/dL (9-20); Calcium 10.5 mg/dL (8.4-10.2); Carbon Dioxide 22 mmol/L (22-30); Chloride 104 mmol/L (98-107); Glucose 128 mg/dL (74-99); Lipase 1074 U/L (23-300); Non-African American GFR(CKD) >90 (>60 ml/min/1.73 sqM); Sodium 139 mmol/L (137-145); Total Bilirubin 0.9 mg/dL (0.2-1.3); Total Protein 8.4 g/dL (6.3-8.2)
[2023-01-04 17:51] LABS: Potassium 4.4 mmol/L (3.5-5.1)
--- NOTE | 2023-01-04 18:17 | CT ---
EXAMINATION TYPE: CT abdomen pelvis w con DATE OF EXAM: 01/04/2023 COMPARISON: None HISTORY: abdominal pain, nausea, vomiting. CT DLP: 703.8 mGycm Automated exposure control for dose reduction was used. TECHNIQUE: Helical acquisition of images was performed from the lung bases through the pelvis. CONTRAST: Performed without Oral Contrast and with IV Contrast, patient injected with 100 mL of Isovue 300. FINDINGS: The lung bases are clear. There are surgical absence of the gallbladder. A few tiny cysts in the dome of the liver. No focal masses or organomegaly involving the liver, pancr eas, spleen or adrenal glands. There are no solid renal masses or hydronephrosis. The caliber the abdominal aorta is normal. There is no retroperitoneal adenopathy or hemorrhage. The bowel loops are normal in caliber is no dilatation or obstruction. There is no free intraperitone al air or fluid. There is no pelvic mass, free fluid, abscess or adenopathy. The osseous structures are intact. IMPRESSION: No acute changes within the abdomen or pelvis.
[2023-01-04 18:37] LABS: Glucose,Whole Blood 88 mg/dL (70-110)
[2023-01-04] MEDS ORDERED: ONDANSETRON 4 MG/2 ML VIAL IVP PRN (18:40)
[2023-01-04] MEDS ORDERED: NALOXONE 0.4 MG/ML 1 ML VIAL IV PRN (18:40)
[2023-01-04 18:44] LABS: Appearance,Urine Clear (Clear); Bilirubin,Urine Negative (Negative); Blood,Urine Negative (Negative); Color,Urine Light Yellow; Glucose,Urine (UA) Negative (Negative); Ketones,Urine Negative (Negative); Leukocyte Esterase,Urine Negative (Negative); Nitrite,Urine Negative (Negative); PH, Urine 6.5 (5.0-8.0); Protein,Urine Negative (Negative); Specific Gravity,Urine 1.009 (1.001-1.035)
[2023-01-04] MEDS: MORPHINE SULFATE 4 MG/ML SYRINGE IV PRN ×2 (19:47→23:44)
[2023-01-04] MEDS ORDERED: METOCLOPRAMIDE 5 MG TAB PO PRN (20:11)
[2023-01-04] MEDS ORDERED: DICYCLOMINE 10 MG CAP PO PRN (20:11)
[2023-01-04] MEDS: LACTULOSE 20 GM/30 ML CUP PO SCH (20:33)
[2023-01-05] MEDS: MORPHINE SULFATE 4 MG/ML SYRINGE IV PRN ×2 (03:20→08:37)
[2023-01-05 05:40] LABS: Glucose,Whole Blood 166 mg/dL (70-110)
[2023-01-05] MEDS ORDERED: KETOROLAC 15 MG/ML 1 ML VIAL IVP PRN (06:42)
[2023-01-05] MEDS ORDERED: NON FORMULARY DRUG (Linaclotide [Linzess] 72 MCG Capsule) PO PRN (06:42)
[2023-01-05] MEDS ORDERED: DEXTROSE 50% SYRINGE 50 ML IVP PRN ×2 (06:42)
[2023-01-05] MEDS ORDERED: ACETAMINOPHEN TAB 325 MG TAB PO PRN (06:43)
[2023-01-05 07:12] LABS: Basophils % (A) 0 %; Eosinophils # (A) 0.2 k/uL (0-0.7); Eosinophils % (A) 2 %; HCT 38.9 % (39.0-53.0); HGB 13.1 gm/dL (13.0-17.5); Lymphocytes # (A) 2.8 k/uL (1.0-4.8); Lymphocytes % (A) 27 %; MCH 34.4 pg (25.0-35.0); MCHC 33.7 g/dL (31.0-37.0); Macrocytosis Slight; Mean Platelet Volume 7.8; Monocytes # (A) 0.6 k/uL (0-1.0); Monocytes % (A) 6 %; Neutrophils # (A) 6.8 k/uL (1.3-7.7); Neutrophils % (A) 64 %; Platelet Count 254 k/uL (150-450); RBC 3.81 m/uL (4.30-5.90); RDW 12.9 % (11.5-15.5); WBC 10.5 k/uL (3.8-10.6)
[2023-01-05 07:19] LABS: African American GFR (CKD) >90 (>60 ml/min/1.73 sqM); Anion Gap 8 mmol/L; Blood Urea Nitrogen 10 mg/dL (9-20); Calcium 9.7 mg/dL (8.4-10.2); Carbon Dioxide 26 mmol/L (22-30); Chloride 107 mmol/L (98-107); Glucose 136 mg/dL (74-99); Non-African American GFR(CKD) >90 (>60 ml/min/1.73 sqM); Sodium 141 mmol/L (137-145)
[2023-01-05] MEDS: INSULIN ASPART (NovoLOG) 100 UNIT/ML VIAL SQ SCH ×2 (08:04→12:07)
[2023-01-05] MEDS: LACTULOSE 20 GM/30 ML CUP PO SCH (08:36)
[2023-01-05] MEDS ORDERED: PANTOPRAZOLE 40 MG/10 ML VIAL IV SCH (09:00)
[2023-01-05] MEDS ORDERED: HEPARIN SODIUM,PORCINE 5,000 UNIT/ML 1 ML VIAL SQ SCH (09:00)
[2023-01-05] MEDS ORDERED: METOPROLOL SUCCINATE (ER) 100 MG TAB.ER.24H PO SCH (09:00)
[2023-01-05 09:36] VITALS: BP 166/88; PULSE 81; RESP 17; TEMP 98
--- NOTE | 2023-01-05 10:32 | P.HPIM ---
History of Present Illness 62-year-old male with chronic abdominal pain with multiple episodes of pancreatitis from alcohol which she quit 6 months ago came in with the complaints of loss of weight been going on for months and epigastric abdominal pain. Patient had EGDs colonoscopies MRIs CTs that was done by GI specialist without any clear etiology for his weight loss and abdominal pain. Patient has minimally elevated lipase and amylase CT of the abdomen didn't show any significant abnormality. The patient is thin built with low BMI of 19. Patient is tolerating liquid diet at this time we will advance her diet to full liquid diet if he can tolerate patient will be discharged to follow up with painting technician for chronic abdominal pain. Patient given prescription of tramadol for pain IV do have some concern of opiate seeking behavior. Patient was never any nausea vomiting REVIEW OF SYSTEMS: CONSTITUTIONAL: No fever, no malaise, no fatigue. HEENT: No recent visual problems or hearing problems. Denied any sore throat. CARDIOVASCULAR: No chest pain, orthopnea, PND, no palpitations, no syncope. PULMONARY: No shortness of breath, no cough, no hemoptysis. GASTROINTESTINAL: No diarrhea, no nausea, no vomiting. NEUROLOGICAL: No headaches, no weakness, no numbness. HEMATOLOGICAL: Denies any bleeding or petechiae. GENITOURINARY: Denies any burning micturition, frequency, or urgency. MUSCULOSKELETAL/RHEUMATOLOGICAL: Denies any joint pain, swelling, or any muscle pain. ENDOCRINE: Denies any polyuria or polydipsia. The rest of the 14-point review of systems is negative. PHYSICAL EXAMINATION: GENERAL: The patient is alert and oriented x3, not in any acute distress. Thin built HEENT: Pupils are round and equally reacting to light. EOMI. No scleral icterus. No conjunctival pallor. Normocephalic, atraumatic. No pharyngeal erythema. No thyromegaly. CARDIOVASCULAR: S1 and S2 present. No murmurs, rubs, or gallops. PULMONARY: Chest is clear to auscultation, no wheezing or crackles. ABDOMEN: Soft, subjective and exacerbated tenderness nondistended, normoactive bowel sounds. No palpable organomegaly. MUSCULOSKELETAL: No joint swelling or deformity. EXTREMITIES: No cyanosis, clubbing, or pedal edema. NEUROLOGICAL: Gross neurological examination did not reveal any focal deficits. SKIN: No rashes. Assessment and plan -Abdominal pain patient has chronic abdominal pain I don't have any clear evidence of pancreatitis although I cannot completely rule it out if patient can tolerate the diet patient will be discharged today with painting technician evaluation and possibly celiac nerve block.. Patient may have duodenitis and gastritis because of which she started him on Protonix patient wa s discharged on Protonix and pain medications. -Type 2 diabetes mellitus -Hyperlipidemia -Hypertension -Nicotine use: Counseling was provided For above-mentioned medical problems patient will be resumed and continued on home medications DVT prophylaxis: Early ambulation Past Medical History Past Medical History: Diabetes Mellitus, Hyperlipidemia, Hypertension, Liver Disease Additional Past Medical History / Comment(s): tremors History of Any Multi-Drug Resistant Organisms: None Reported Past Surgical History: Cholecystectomy Past Psychological History: No Psychological Hx Reported Smoking Status: Current every day smoker Past Alcohol Use History: Occasional Past Drug Use History: Marijuana Medications and Allergies Home Medications Medication Instructions Recorded Confirmed Type Insulin Lispro [humaLOG Kwikpen] See Protocol SQ AC-BID PRN 03/27/21 01/04/23 History Metoprolol Succinate (ER) [Toprol 100 mg PO DAILY 03/27/21 01/04/23 History Xl] Dicyclomine [Bentyl] 10 mg PO TID PRN 01/04/23 01/04/23 History Lactulose 30 gm PO BID 01/04/23 01/04/23 History Linaclotide [Linzess] 72 mcg PO DAILY PRN 01/04/23 01/04/23 History Metoclopramide [Reglan] 5 mg PO BID PRN 01/04/23 01/04/23 History Pantoprazole Sodium [Protonix] 40 mg PO AC-BRKFST #14 tab 01/05/23 Rx Allergies Allergy/AdvReac Type Severity Reaction Status Date / Time cephalexin [From Keflex] Allergy Rash/Hives Verified 01/04/23 19:10 aspirin AdvReac Nausea & Verified 01/04/23 19:10 Vomiting & Diarrhea Physical Exam Vitals: Vital Signs Temp Pulse Pulse Resp BP BP Pulse Ox 01/05/23 07:32 98.0 F 81 17 166/88 99 01/05/23 01:04 EDT 169/82 01/05/23 00:25 98.2 F 70 18 186/85 99 01/04/23 20:15 171/83 01/04/23 19:42 81 18 183/91 99 01/04/23 19:30 98.3 F 81 18 167/96 99 01/04/23 15:47 98.5 F 96 20 133/76 100 Intake and Output 01/04/23 01/05/23 01/05/23 23:59 06:59 14:59 Other: # Voids Weight Results CBC & Chem 7: 01/05/23 06:46 01/05/23 06:46 Labs: Abnormal Lab Results - Last 24 Hours (Table) 01/04/23 01/04/23 01/04/23 Range/Units 16:24 16:24 16:24 WBC 12.5 H (3.8-10.6) k/uL RBC 4.29 L (4.30-5.90) m/uL Hct (39.0-53.0) % MCV (80.0-100.0) fL Neutrophils # 8.2 H (1.3-7.7) k/uL Creatinine 0.59 L (0.66-1.25) mg/dL Glucose 128 H (74-99) mg/dL POC Glucose (mg/dL) (70-110) mg/dL Plasma Lactic Acid Adolph 2.1 H* (0.7-2.0) mmol/L Calcium 10.5 H (8.4-10.2) mg/dL Delta Bilirubin 0.4 H (0.0-0.2) mg/dL Total Protein 8.4 H (6.3-8.2) g/dL Amylase 293 H (30-110) U/L Lipase 1074 H (23-300) U/L 01/04/23 01/05/23 01/05/23 Range/Units 20:20 05:38 06:46 WBC (3.8-10.6) k/uL RBC 3.81 L (4.30-5.90) m/uL Hct 38.9 L (39.0-53.0) % MCV 102.0 H (80.0-100.0) fL Neutrophils # (1.3-7.7) k/uL Creatinine (0.66-1.25) mg/dL Glucose (74-99) mg/dL POC Glucose (mg/dL) 166 H (70-110) mg/dL Plasma Lactic Acid Adolph 0.6 L (0.7-2.0) mmol/L Calcium (8.4-10.2) mg/dL Delta Bilirubin (0.0-0.2) mg/dL Total Protein (6.3-8.2) g/dL Amylase (30-110) U/L Lipase (23-300) U/L 01/05/23 Range/Units 06:46 WBC (3.8-10.6) k/uL RBC (4.30-5.90) m/uL Hct (39.0-53.0) % MCV (80.0-100.0) fL Neutrophils # (1.3-7.7) k/uL Creatinine 0.59 L (0.66-1.25) mg/dL Glucose 136 H (74-99) mg/dL POC Glucose (mg/dL) (70-110) mg/dL Plasma Lactic Acid Adolph (0.7-2.0) mmol/L Calcium (8.4-10.2) mg/dL Delta Bilirubin (0.0-0.2) mg/dL Total Protein (6.3-8.2) g/dL Amylase (30-110) U/L Lipase (23-300) U/L
--- NOTE | 2023-01-05 10:33 | P.DS ---
Providers Date of admission: 01/04/23 18:41 Attending physician: Desi Nagel Primary care physician: [facility] Course: 62-year-old male with chronic abdominal pain with multiple episodes of pancreatitis from alcohol which she quit 6 months ago came in with the complaints of loss of weight been going on for months and epigastric abdominal pain. Patient had EGDs colonoscopies MRIs CTs that was done by GI specialist without any clear etiology for his weight loss and abdominal pain. Patient has minimally elevated lipase and amylase CT of the abdomen didn't show any significant abnormality. The patient is thin built with low BMI of 19. Patient is tolerating liquid diet at this time we will advance her diet to full liquid diet if he can tolerate patient will be discharged to follow up with industrial painter for chronic abdominal pain. Patient given prescription of tramadol for pain IV do have some concern of opiate seeking behavior. Patient was never any nausea vomiting REVIEW OF SYSTEMS: CONSTITUTIONAL: No fever, no malaise, no fatigue. HEENT: No recent visual problems or hearing problems. Denied any sore throat. CARDIOVASCULAR: No chest pain, orthopnea, PND, no palpitations, no syncope. PULMONARY: No shortness of breath, no cough, no hemoptysis. GASTROINTESTINAL: No diarrhea, no nausea, no vomiting. NEUROLOGICAL: No headaches, no weakness, no numbness. HEMATOLOGICAL: Denies any bleeding or petechiae. GENITOURINARY: Denies any burning micturition, frequency, or urgency. MUSCULOSKELETAL/RHEUMATOLOGICAL: Denies any joint pain, swelling, or any muscle pain. ENDOCRINE: Denies any polyuria or polydipsia. The rest of the 14-point review of systems is negative. PHYSICAL EXAMINATION: GENERAL: The patient is alert and oriented x3, not in any acute distress. Thin built HEENT: Pupils are round and equally reacting to light. EOMI. No scleral icterus. No conjunctival pallor. Normocephalic, atraumatic. No pharyngeal erythema. No thyromegaly. CARDIOVASCULAR: S1 and S2 present. No murmurs, rubs, or gallops. PULMONARY: Chest is clear to auscultation, no wheezing or crackles. ABDOMEN: Soft, subjective and exacerbated tenderness nondistended, normoactive bowel sounds. No palpable organomegaly. MUSCULOSKELETAL: No joint swelling or deformity. EXTREMITIES: No cyanosis, clubbing, or pedal edema. NEUROLOGICAL: Gross neurological examination did not reveal any focal deficits. SKIN: No rashes. Assessment and plan -Abdominal pain patient has chronic abdominal pain I don't have any clear evidence of pancreatitis although I cannot completely rule it out if patient can tolerate the diet patient will be discharged today with industrial painter evaluation and possibly celiac nerve block.. Patient may have duodenitis and gastritis because of which she started him on Protonix patient was discharged on Protonix and pain medications. -Type 2 diabetes mellitus -Hyperlipidemia -Hypertension -Nicotine use: Counseling was provided Patient Condition at Discharge: Stable Plan - Discharge Summary Discharge Rx Participant: Yes New Discharge Prescriptions: New Pantoprazole Sodium [Protonix] 40 mg PO AC-BRKFST #14 tab No Action Metoclopramide [Reglan] 5 mg PO BID PRN PRN Reason: Nausea Metoprolol Succinate (ER) [Toprol Xl] 100 mg PO DAILY Insulin Lispro [humaLOG Kwikpen] See Protocol SQ AC-BID PRN PRN Reason: Blood Sugar - High Lactulose 30 gm PO BID Linaclotide [Linzess] 72 mcg PO DAILY PRN PRN Reason: Gi Upset Dicyclomine [Bentyl] 10 mg PO TID PRN PRN Reason: Gi Upset Discharge Medication List Insulin Lispro [humaLOG Kwikpen] See Protocol SQ AC-BID PRN 03/27/21 [History] Metoprolol Succinate (ER) [Toprol Xl] 100 mg PO DAILY 03/27/21 [History] Dicyclomine [Bentyl] 10 mg PO TID PRN 01/04/23 [History] Lactulose 30 gm PO BID 01/04/23 [History] Linaclotide [Linzess] 72 mcg PO DAILY PRN 01/04/23 [History] Metoclopramide [Reglan] 5 mg PO BID PRN 01/04/23 [History] Pantoprazole Sodium [Protonix] 40 mg PO AC-BRKFST #14 tab 01/05/23 [Rx] Follow up Appointment(s)/Referral(s): Yohana Mayorga MD [STAFF PHYSICIAN] - 1 Week (Office is closed at time of discharge. Please call for follow-up appointment.) Bill Hernandez MD [REFERRING] - 3 Days (Office is closed at time of discharge. Please call for follow-up appointment.) Discharge Disposition: HOME SELF-CARE
[2023-01-05 11:30] LABS: Glucose,Whole Blood 153 mg/dL (70-110)
--- NOTE | 2023-01-07 13:27 | CDI ---
Documentation Clarification Form Date: 01/07/2023 01:04:44 PM From: Nuha Shepherd Admit Date: 01/04/2023 06:41:00 PM Patient Name: Bassam Robles Visit Number: [id number] Discharge Date: 01/05/2023 01:47:00 PM ATTENTION: The Clinical Documentation Specialists (CDI) and [facility] Coding Staff appreciate your assistance in clarifying documentation. Please respond to the clarification below the line at the bottom and electronically sign. The CDI & [facility] Coding staff will review the response and follow-up if needed. Please note: Queries are made part of the Legal Health Record. If you have any questions, please contact the author of this message via ITS. Dr. Betty Delatorre The patients principal diagnosis the diagnosis that was chiefly responsible for the admission - has not been clearly identified and clarification is requested. The patient presented with the following- chronic abdominal pain, possible acute pancreatitis, duodenitis, and gastritis. History/Risk factors: patient is a 62 year old male with chronic abdominal pain with multiple episodes of pancreatitis from alcohol which she quit 6 months ago, came in with complaints of loss of weight, been going on for months, and epigastric abdominal pain. Patient underwent EGDs, colonoscopies, MRIs, and CTs by GI specialist without any clear etiology for weight loss and abdominal pain. Has a hx of DM, HLD, HTN, and liver disease. Clinical Indicators: patient has a minimally elevated lipase and amylase. There is some concern of opiate seeking behavior. Per your H&P and D/C Summary: patient has chronic abdominal pain, I dont have any clear evidence of pancreatitis, although I cannot completely rule it out if patient can tolerate the diet, patient will be discharged today with painter helper sign evaluation and possibly celiac nerve block. Patient may have duodenitis, and gastritis. Because of which he was started on protonix. Lab findings: WBC 12.5, lactic acid 2.1, lipase 1074, amylase 293 Radiology findings: CT of the abdomen: no acute changes within the abdomen or pelvis. Vital Signs: T 98.5, pulse 96, RR 20, BP 133/76 Treatment: started on protonix, toradol for pain, Zofran In your professional opinion, can you please clarify which diagnosis, after study, was the reason chiefly responsible for the admission? [ ] Acute Pancreatitis [ ] Duodenitis [ ] Acute Gastritis [ ] Other, please specify [ x ] Unable to determine [facility]
--- NOTE | 2023-01-08 15:52 | CDI ---
Documentation Clarification Form Date: 01/08/23 From: Kraig Zuniga Phone: [phone] Admit Date: 01/04/2023 06:41:00 PM Patient Name: Bassam Robles Visit Number: [id number] Discharge Date: 01/05/2023 01:47:00 PM ATTENTION: The Clinical Documentation Specialists (CDI) and [facility] Coding Staff appreciate your assistance in clarifying documentation. Please respond to the clarification below the line at the bottom and electronically sign. The CDI & [facility] Coding staff will review the response and follow-up if needed. Please note: Queries are made part of the Legal Health Record. If you have any questions, please contact the author of this message via ITS. Dr. Delatorre, There is documentation of slight lactic acidosis in the ED note 01/04. As attending physician, clarification regarding this diagnosis is requested. History/Risk Factors: 62 yo male admitted with chronic abdominal pain. PMH DM2, HTN, hyperlipidemia Clinical Indicators: Lactic acid on 01/04 2.1, repeat value 0.6 Treatment: NS 1000 ml bolus in ED, followed by NS at 100 ml/hr Blood glucose monitoring Clear liquid diet 01/04, advance to full liquids on 01/05 In your professional opinion, after work up and study are you in agreement with the ED diagnosis of slight lactic acidosis? [ x] Lactic Acidosis treated and resolved [ ] Lactic Acidosis ruled out [ ] Abnormal lab value not clinically significant [ ] Unable to determine [ ] Other, please specify MTDD
== END 2023-01-05 13:48 | disposition home or self-care (01) ==
LOC: EC 15:42 → INTOOBSV 18:41 → 4SSUR 18:41 → UNDODISIN 01-05 13:47
PROVIDERS: ADMIT Hospitalist; ATTEND Hospitalist
DX: G89.29 Other chronic pain (principal); R10.9 Unspecified abdominal pain; E87.20 Acidosis, unspecified; E11.9 Type 2 diabetes mellitus without complications; E78.5 Hyperlipidemia, unspecified; I10 Essential (primary) hypertension; F17.200 Nicotine dependence, unspecified, uncomplicated; Z79.4 Long term (current) use of insulin; Z79.899 Other long term (current) drug therapy; Z88.1 Allergy status to other antibiotic agents; Z88.6 Allergy status to analgesic agent
CPT/HCPCS: 96376 ×3; 96361 ×3; 96372; 96374; 96375; 99285; 36415; 93005; 80053; 80048; 82150; 82248; 83605; 83690; 85025 ×2; 85610; 85730; 81003; 74177; G0378 ×2; J2270 ×2; J1644; J2405 ×2; C9113 ×2; Q9967

== ENCOUNTER → 2023-02-04 | Outpatient (CLI) | payer BC, MEDICARE ==
--- NOTE | 2023-02-04 15:48 | MR ---
EXAMINATION TYPE: MR MRCP DATE OF EXAM: 02/04/2023 8:57 AM CLINICAL INDICATION:Male, 62 years old with history of R10.10 upper abdominal pain, Upper abdominal p ain. COMPARISON: 11/07/2022. TECHNIQUE: Multi planar, T2-weighted imaging with and without fat saturation and chemical shift imag ing was performed of the abdomen. Then, heavily T2 weighted imaging (half-Fourier acquisition single- shot turbo spin-echo) was utilized in order to study the biliary system. Maximum intensity projectio n images were reconstructed from the original data of the biliary tree. 3D images were created on [email or web address] work station. No Gadolinium given. FINDINGS: Lower Thorax: No evidence for acute process. MRCP: * The intrahepatic ducts are mildly dilated centrally. Findings similar * The common bile duct at the level of the pancreatic head measures 10 mm in size. Irregular taperin g within the common bile duct remains present bilaterally on axial imaging series 701 image 16. * The common hepatic duct measures 12 mm in size previously 9 mm.. * The pancreatic duct is normal. * Gallbladder surgically absent the cystic duct remnant present. Abdomen: Liver: No evidence for hepatic steatosis or cirrhosis. High T2 signal lesions in the dome of the live r. Pancreas: No ductal dilation. No evidence for solid mass. Spleen: Normal for size. Adrenal glands: Unremarkable. Kidneys: No evidence for obstructive uropathy. No No suspicious renal masses. Stomach and Bowel: No evidence for bowel wall thickening or evidence for obstruction.. Peritoneum: No evidence of pneumoperitoneum or free fluid. Vasculature: No aortic aneurysm. Musculoskeletal: The osseous structures appear intact. Lymph Nodes: No gross evidence for lymphadenopathy. Abdominal wall: Unremarkable. IMPRESSION: 1. Increase in dilation of the iliac system with redemonstration of tapering with eccentric soft tis gen near the ampulla. ERCP recommended for further evaluation. Interval in crease in dilation of the extrahepatic biliary system. Common hepatic duct measuring up to 12 mm, previously 9 mm. 2. The main pancreatic duct and pancreas appear within normal limits. 3. Suspected hemangiomas in the dome of the liver as seen on prior 11/07/2022 MRI.
== END | disposition home or self-care (01) ==
LOC: RADMRIMAIN 07:52
PROVIDERS: ATTEND Internal Medicine Gastroenterology
DX: R10.10 Upper abdominal pain, unspecified (principal); I72.3 Aneurysm of iliac artery; K83.8 Other specified diseases of biliary tract
CPT/HCPCS: 74181

== ENCOUNTER → 2023-02-12 | Outpatient (CLI) | payer BC, MEDICARE ==
[2023-02-12 10:39] VITALS: BP 129/84; PULSE 93; RESP 16; TEMP 98.9
--- NOTE | 2023-02-12 12:49 | P.PAINPG ---
PQRS Measure Charge Sheet Comment: HISTORY OF PRESENT ILLNESS: A 62 yr old male as a referral from Dr Patel presents today w severe and chronic pancreatitis secondary to history of ETOH overuse/ abuse for evaluation. Pt states pain level is provoked at 8/10 in intensity, constant, localized in the epigastric region, sharp/ stabbing in character w occasional shooting pain towards the back. Pain is provoked by meal consumption. Pain is alleviated by medications (Clayton 5/325mg), topical patches, heat, empty stomach and rest. He only wants medications and states he might not be around if he has to wait 1 mo for a celiac plexus block that we discussed. Urged pt to follow up w psychiatry for mood/ behavioral issues/ history of substance abuse. Discussed pt's history of cannabis may have mind altering effects on mood/ behavior even though it can be used medically for chronic pain, but it absolutely can not be combined w narcotic medications. PMH: OA, DM II, Hyperlipidemia, HTN, Chronic Pancreatitis, BPH, MDD PSH: Cholecystectomy SH: Daily tobacco use, Occasional ETOH use, Cannabis use. Pt was wearing an [employer] cap and a [place] t-shirt. FH: Non contributory All: See list Meds: See list REVIEW OF ORGAN SYSTEMS: CONSTITUTIONAL: No fevers or chills. No recent weight loss. NEUROLOGICAL: + numbness and tingling along the distal extremities. No seizure disorders or headaches. MUSCULOSKELETAL: + pain PSYCHIATRIC: Denies current depression or suicidal thoughts. Physical Examinations : Constitutional : Cooperative , not in acute distress . Neurologic : Cranial nerve II to XII intact. No focal neurological deficits. Psychiatric : alert & oriented x 3. Matching mood & appropriate affect. Judgment & insight intact. Musculoskeletal : Cervical Spine Motor strength in the deltoid and biceps: Normal right side. Normal Left side Motor strength biceps and the wrist extensors: Normal right side . Normal left side Motor strength in the triceps muscle: Normal right side. Normal left side Deep tendon reflexes: Normal at the biceps. Normal at Brachioradialis. Normal at triceps Vertebral body tenderness to deep palpation over Cervical facet loading test: positive bilaterally Spurling test: positive bilaterally Neck distraction test: positive bila terally Lenka sign: positive bilaterally Lumbar spine Motor strength lower extremities ,thigh and legs 5/5 Right side , 5/5 Left side Deep tendon reflexes : Normal Knee Jerk. Normal Ankle Jerk Vertebral body tenderness over Harper Test positive Lumbar facet Loading Test: positive Right / positive Left Range of motion of the lumbar spine Flexion 30 degrees, extension 10 degrees Straight Leg Raise test: Left/ Right positive at degree Inocencio test: positive right / positive left. Severe tenderness over the Sacroiliac joint on the Right / Left sides Gaenslen test: positive bilaterally Seated flexion test: positive bilaterally. Sacral spine : Severe tenderness over the Sacroiliac joint: right side / left side Range of motion: Flexion of the lumbar spine <60 degrees Range of motion: Extension of the lumbar spine <20 degrees Gaenslen's Test positive Inocencio test: positive right side / left side Thigh Thrust Test Sacral Thrust Test Imaging: CT noncontrast of abdomen from 01/14/23 reviewed Assessment/ Plan : Chronic Pancreatitis Recommendation of Celiac Plexus Block. May need a series of injections for optim al pain relief. Risks, benefits of procedure discussed and patient verbalized understanding. Admits to anti- coagulant use or medical history of diabetes. Protocol for discontinuation/ continuation of medications leslie procedure discussed. All questions answered. Contact information to [facility] for history of alcohol overuse and alarming statements made that he may not be around for upcoming celiac nerve block. Discussed at length the value of life, self- worth, etc. I have spent greater than 30 minutes on patient care today. Dr Mayorga was available by phone for the evaluation of this patient. The time was used to review the medical records including relevant urine studies and Prescription history (MAPs), review of the available imaging, evaluation and examination of the patient, coordination of care with the medical staff and if applicable referring physicians, as well as creation of the medical record - Pain Location Abdomen Non-Pharmacological Interventions: Heat, Ice, Inactivity, Position/Reposition Pharmacological Interventions: Scheduled Medication, Topical Medication PQRS Narrative: Smoking Status Current every day smoker Home Medications: Ambulatory Orders Insulin Lispro [humaLOG Kwikpen] See Protocol SQ AC-BID PRN 03/27/21 Metoprolol Succinate (ER) [Toprol Xl] 100 mg PO DAILY 03/27/21 Dicyclomine [Bentyl] 10 mg PO TID PRN 01/04/23 Lactulose 30 gm PO BID 01/04/23 Linaclotide [Linzess] 72 mcg PO DAILY PRN 01/04/23 Metoclopramide [Reglan] 5 mg PO BID PRN 01/04/23 Pantoprazole Sodium [Protonix] 40 mg PO AC-BRKFST #14 tab 01/05/23 traMADol HCL 50 mg PO Q6H PRN 3 Days #12 tab 01/05/23 Controlled Substance Measures - Controlled Substance Measures Is patient prescribed a controlled substance at discharge?: No
== END ==
LOC: PNWHC3 08:51
PROVIDERS: ATTEND Specialist
DX: K85.90 Acute pancreatitis without necrosis or infection, unspecified (principal); Z02.83 Encounter for blood-alcohol and blood-drug test; Z88.6 Allergy status to analgesic agent; Z88.1 Allergy status to other antibiotic agents; F17.200 Nicotine dependence, unspecified, uncomplicated
CPT/HCPCS: 99211

== ENCOUNTER → 2023-02-12 | Outpatient (CLI) | payer BC, MEDICARE ==
[2023-02-13 08:46] LABS: Serum Amphetamine Negative; Serum Barbiturates Negative; Serum Benzodiazepine Negative; Serum Cocaine Negative; Serum Methadone Negative; Serum Opiates Negative; Serum Phencyclidine Negative; Serum Propoxyphene Negative; Serum THC (Cannabis) Negative
== END | disposition home or self-care (01) ==
LOC: LABWHC1 10:20
PROVIDERS: ATTEND Physician Assistant Medical
DX: Z02.83 Encounter for blood-alcohol and blood-drug test (principal)
CPT/HCPCS: 36415; 80307

== ENCOUNTER 2023-02-16 11:16 | Emergency (ER) | payer BC, MEDICARE ==
[2023-02-16 11:49] VITALS: TEMP 97.9
[2023-02-16] MEDS ORDERED: HYDROmorphone 1 MG/ML 1 ML SYRINGE IVP STA (12:20)
[2023-02-16] MEDS ORDERED: PANTOPRAZOLE 40 MG/10 ML VIAL IVP STA (12:20)
[2023-02-16] MEDS ORDERED: SODIUM CHLORIDE 0.9% 1,000 ML IV STA (12:20)
[2023-02-16] MEDS ORDERED: ONDANSETRON 4 MG/2 ML VIAL IVP STA (12:20)
--- NOTE | 2023-02-16 12:49 | ED ---
Abdominal Pain HPI - General Chief Complaint: Abdominal Pain Stated Complaint: Abd Pain Time Seen by Provider: 02/16/23 12:15 Source: patient, EMS, RN notes reviewed, old records reviewed Mode of arrival: EMS Limitations: no limitations - History of Present Illness Initial Comments: This is a 62-year-old male to the emergency department for evaluation. Patient's recheck for abdominal pain. History of chronic abdominal pain with removed gallbladder pancreatitis issues. Patient has history of recurrent pancreatitis he states recent MRCP states that he needs an ERCP. Patient has persistent pain here in the emergency room with a lot of recent weight loss MD Complaint: abdominal pain -: month(s) Location: periumbilical, RUQ Radiation: RUQ, epigastric Migration to: epigastric Severity: moderate Severity scale (1-10): 7 Quality: cramping, stabbing, aching Consistency: constant, intermittent Improves With: nothing Worsens With: nothing Associated Symptoms: nausea Treatments Prior to Arrival: other (0) - Related Data Home Medications Medication Instructions Recorded Confirmed Insulin Lispro [humaLOG Kwikpen] See Protocol SQ AC-BID PRN 03/27/21 02/25/23 Metoprolol Succinate (ER) [Toprol 100 mg PO HS 03/27/21 02/25/23 Xl] Lactulose 30 gm PO BID 01/04/23 02/25/23 Acetaminophen Tab [Tylenol] 650 mg PO Q6H PRN 02/18/23 02/25/23 Pantoprazole Sodium [Protonix] 20 mg PO AC-BRKFST 02/18/23 02/25/23 traZODone HCL 100 mg PO HS 02/18/23 02/25/23 Diclofenac Sodium [Voltaren] 50 mg PO BID 02/25/23 02/25/23 Allergies Allergy/AdvReac Type Severity Reaction Status Date / Time cephalexin [From Keflex] Allergy Rash/Hives Verified 02/25/23 10:51 aspirin AdvReac Nausea & Verified 02/25/23 10:51 Vomiting & Diarrhea Review of Systems ROS Statement: Those systems with pertinent positive or pertinent negative responses have been documented in the HPI. ROS Other: All systems not noted in ROS Statement are negative. Past Medical History Past Medical History: Diabetes Mellitus, Hyperlipidemia, Hypertension, Liver Di sease Additional Past Medical History / Comment(s): tremors History of Any Multi-Drug Resistant Organisms: None Reported Past Surgical History: Cholecystectomy Past Psychological History: No Psychological Hx Reported Smoking Status: Current every day smoker Past Alcohol Use History: Occasional Past Drug Use History: Marijuana General Exam Limitations: no limitations General appearance: alert, in no apparent distress Head exam: Present: atraumatic, normocephalic, normal inspection Eye exam: Present: normal appearance, PERRL, EOMI. Absent: scleral icterus, conjunctival injection, periorbital swelling ENT exam: Present: normal exam, mucous membranes moist Neck exam: Present: normal inspection. Absent: tenderness, meningismus, lymphadenopathy Respiratory exam: Present: normal lung sounds bilaterally. Absent: respiratory distress, wheezes, rales, rhonchi, stridor Cardiovascular Exam: Present: regular rate, normal rhythm, normal heart sounds. Absent: systolic murmur, diastolic murmur, rubs, gallop, clicks GI/Abdominal exam: Present: soft, normal bowel sounds. Absent: distended, tenderness, guarding, rebound, rigid Extremities exam: Present: normal inspection, full ROM, normal capillary refill. Absent: tenderness, pedal edema, joint swelling, calf tenderness Back exam: Present: normal inspection Neurological exam: Present: alert, oriented X3, CN II-XII intact Psychiatric exam: Present: normal affect, normal mood Skin exam: Present: warm, dry, intact, normal color. Absent: rash Course Vital Signs 02/16/23 02/16/23 11:19 14:31 Temperature 97.9 F Pulse Rate 89 82 Respiratory 20 18 Rate Blood Pressure 177/84 196/102 O2 Sat by Pulse 98 96 Oximetry - Reevaluation(s) Reevaluation #1: 02/16/23 12:57 Record is reviewed Reevaluation #2: 02/16/23 14:22 Symptoms are improved Reevaluation #3: 02/16/23 14:23 Patient informed results and questions answered Reevaluation #4: 02/16/23 12:52 Was pt. sent in by a medical professional or institution ([facility], DEALER COMPLIANCE REPRESENTATIVE, urgent care, hospital, or [facility]...) When possible be specific @ -no Did you speak to anyone other than the patient for history (EMS, parent, family, police, friend...)? What history was obtained from this source @ -no Did you review nursing and triage notes (agree or disagree)? Why? @ -agree Are old charts reviewed (outside hosp., previous admission, EMS record, old EKG, old radiological studies, urgent care reports/EKG's, [facility] records)? Report findings @ -yes Differential Diagnosis (chest pain, altered mental status, abdominal pain women, abdominal pain men, vaginal bleeding, weakness, fever, dyspnea, syncope, headache, dizziness, GI bleed, back pain, seizure, CVA, palpatations, mental health, musculoskeletal)? @ -prior EKG interpreted by me (3pts min.). @ -no X-rays interpreted by me (1pt min.). @ -no CT interpreted by me (1pt min.). @ -no U/S interpreted by me (1pt. min.). @ -no What testing was considered but not performed or refused? (CT, X-rays, U/S, labs)? Why? @ -none What meds were considered but not given or refused? Why? @ -none Did you discuss the management of the patient with other professionals (professionals i.e. , PA, DEALER COMPLIANCE REPRESENTATIVE, lab, RT, psych nurse, psychotherapist social worker, freelance web designer, teacher, traffic officer, pillowcase cutter)? Give summary @ -no Was smoking cessation discussed for >3mins.? @ -no Was critical care preformed (if so, how long)? @ -no Were there social determinants of health that impacted care today? How? (Homelessness, low income, unemployed, alcoholism, drug addiction, transportation, low edu. Level, literacy, decrease access to med. care, prison, rehab)? @ -none Was there de-escalation of care discussed even if they declined (Discuss DNR or withdrawal of care, Hospice)? DNR status @ -no What co-morbidities impacted this encounter? (DM, HTN, Smoking, COPD, CAD, Cancer, CVA, ARF, Chemo, Hep., AIDS, mental health diagnosis, sleep apnea, morbid obesity)? @ -none Was patient admitted / discharged? Hospital course, mention meds given and route, prescriptions, significant lab abnormalities, going to OR and other pe rtinent info. @ - 62 male to the emergency department for evaluation today. Patient presents to the emergency room today evaluation regards to abdominal pain. History of abdominal pain with follow-up with GI. Patient does have outpatient scheduled ERCP, patient has normal lab values will continue to keep an outpatient appointment can be discharged home Discharge Undiagnosed new problem with uncertain prognosis? @ -no Drug Therapy requiring intensive monitoring for toxicity (Heparin, Nitro, Insulin, Cardizem)? @ -no Were any procedures done? @ -no Diagnosis/symptom? @ -Abdominal pain Acute, or Chronic, or Acute on Chronic? @ -Acute Uncomplicated (without systemic symptoms) or Complicated (systemic symptoms)? @ -Complicated Side effects of treatment? @ -no Exacerbation, Progression, or Severe Exacerbation? @ -exacerbation Poses a threat to life or bodily function? How? (Chest pain, USA, PR, pneumonia, PE, COPD, DKA, ARF, appy, cholecystitis, CVA, Diverticulitis, Homicidal, [place] icidal, threat to staff... and all critical care pts) @ -no Reevaluation #5: 02/16/23 12:57 Differential Abdominal Pain Men: Appendicitis, cholecystitis, diverticulosis, ischemic bowel, pancreatitis, hepatitis, UTI, gastroenteritis, AAA, incarcerated hernia, bowel obstruction, constipation, inflammatory bowel, hepatitis, peptic ulcer disease, splenic infarction, perforated viscus, testicular torsion, this is not meant to be an all-inclusive list Medical Decision Making - Medical Decision Making 62 male to the emergency department for evaluation today. Patient presents to the emergency room today evaluation regards to abdominal pain. History of abdominal pain with follow-up with GI. Patient does have outpatient scheduled ERCP, patient has normal lab values will continue to keep an outpatient appointment can be discharged home - Lab Data Result diagrams: 02/16/23 12:37 02/16/23 12:37 Lab Results 02/16/23 02/16/23 02/16/23 Range/Units 12:37 12:37 12:37 WBC 11.8 H (3.8-10.6) k/uL RBC 3.56 L (4.30-5.90) m/uL Hgb 12.0 L (13.0-17.5) gm/dL Hct 36.4 L (39.0-53.0) % MCV 102.3 H (80.0-100.0) fL MCH 33.6 (25.0-35.0) pg MCHC 32.8 (31.0-37.0) g/dL RDW 13.6 (11.5-15.5) % Plt Count 243 (150-450) k/uL MPV 8.8 Neutrophils % 67 % Lymphocytes % 24 % Monocytes % 5 % Eosinophils % 1 % Basophils % 0 % Neutrophils # 8.0 H (1.3-7.7) k/uL Lymphocytes # 2.8 (1.0-4.8) k/uL Monocytes # 0.6 (0-1.0) k/uL Eosinophils # 0.1 (0-0.7) k/uL Basophils # 0.1 (0-0.2) k/uL Macrocytosis Slight PT 11.2 (10.0-12.5) sec INR 1.0 (<1.2) APTT 28.2 (22.0-30.0) sec Sodium 140 (137-145) mmol/L Potassium 4.6 (3.5-5.1) mmol/L Chloride 108 H (98-107) mmol/L Carbon Dioxide 25 (22-30) mmol/L Anion Gap 7 mmol/L BUN 13 (9-20) mg/dL Creatinine 0.40 L (0.66-1.25) mg/dL Est GFR (CKD-EPI)AfAm >90 (>60 ml/min/1.73 sqM) Est GFR (CKD-EPI)NonAf >90 (>60 ml/min/1.73 sqM) Glucose 130 H (74-99) mg/dL Calcium 9.4 (8.4-10.2) mg/dL Total Bilirubin 0.5 (0.2-1.3) mg/dL AST 25 (17-59) U/L ALT 16 (4-49) U/L Alkaline Phosphatase 55 (38-126) U/L Total Protein 6.9 (6.3-8.2) g/dL Albumin 3.7 (3.5-5.0) g/dL Amylase 87 (30-110) U/L Lipase 215 (23-300) U/L Disposition Clinical Impression: Abdominal pain Disposition: HOME SELF-CARE Condition: Good Instructions (If sedation given, give patient instructions): Abdominal Pain (ED) Is patient prescribed a controlled substance at d/c from ED?: No Referrals: Anjel Patel MD [Primary Care Provider] - 1-2 days Time of Disposition: 14:10
[2023-02-16 13:06] LABS: Basophils # (A) 0.1 k/uL (0-0.2); Basophils % (A) 0 %; Eosinophils # (A) 0.1 k/uL (0-0.7); Eosinophils % (A) 1 %; HCT 36.4 % (39.0-53.0); Lymphocytes # (A) 2.8 k/uL (1.0-4.8); Lymphocytes % (A) 24 %; MCH 33.6 pg (25.0-35.0); MCHC 32.8 g/dL (31.0-37.0); MCV 102.3 fL (80.0-100.0); Macrocytosis Slight; Mean Platelet Volume 8.8; Monocytes # (A) 0.6 k/uL (0-1.0); Monocytes % (A) 5 %; Neutrophils % (A) 67 %; Platelet Count 243 k/uL (150-450); RBC 3.56 m/uL (4.30-5.90); RDW 13.6 % (11.5-15.5); WBC 11.8 k/uL (3.8-10.6)
[2023-02-16 13:13] LABS: ALT 16 U/L (4-49); AST 25 U/L (17-59); African American GFR (CKD) >90 (>60 ml/min/1.73 sqM); Albumin 3.7 g/dL (3.5-5.0); Alkaline Phosphatase 55 U/L (38-126); Amylase 87 U/L (30-110); Anion Gap 7 mmol/L; Blood Urea Nitrogen 13 mg/dL (9-20); Calcium 9.4 mg/dL (8.4-10.2); Carbon Dioxide 25 mmol/L (22-30); Chloride 108 mmol/L (98-107); Glucose 130 mg/dL (74-99); Lipase 215 U/L (23-300); Non-African American GFR(CKD) >90 (>60 ml/min/1.73 sqM); Sodium 140 mmol/L (137-145); Total Bilirubin 0.5 mg/dL (0.2-1.3); Total Protein 6.9 g/dL (6.3-8.2)
[2023-02-16 13:14] LABS: Partial Thromboplastin Time 28.2 sec (22.0-30.0); Prothrombin Time 11.2 sec (10.0-12.5)
[2023-02-16 13:37] LABS: Potassium 4.6 mmol/L (3.5-5.1)
[2023-02-16] MEDS ORDERED: traMADol 50 MG STARTER PACK 3 TAB BTL PO STA (14:13)
[2023-02-16] MEDS ORDERED: ONDANSETRON 4 MG ODT STARTER PACK 2 TAB BTL PO STA (14:13)
[2023-02-16 14:34] VITALS: BP 196/102; PULSE 82; RESP 18
== END 2023-02-16 14:33 | disposition home or self-care (01) ==
LOC: EC 11:16
DX: R10.11 Right upper quadrant pain (principal); I10 Essential (primary) hypertension; E11.9 Type 2 diabetes mellitus without complications; F12.90 Cannabis use, unspecified, uncomplicated; F17.200 Nicotine dependence, unspecified, uncomplicated; Z79.4 Long term (current) use of insulin; Z79.899 Other long term (current) drug therapy; Z88.1 Allergy status to other antibiotic agents; Z88.6 Allergy status to analgesic agent; Z90.49 Acquired absence of other specified parts of digestive tract
CPT/HCPCS: 36415; 80053; 82150; 83690; 85025; 85610; 85730; 99284; 96374; 96375 ×2; 96361; J2405; J1170; S0119; C9113

== ENCOUNTER 2023-02-27 11:16 | Day surgery (SDC) | payer BC, MEDICARE ==
--- NOTE | 2023-02-19 11:02 | P.PN ---
Progress Note - Text Progress Note Date: 02/19/23 Pt's OR appt for celiac plexus block needed to be rescheduled. Pt again asked for narcotic medications, stating he was at the ER 1-2 days ago and was given medication that only lasted 1 day. I discussed non- narcotic pain medication for management but pt was disinterested. Diclofenac tabs e-script to pharmacy. Pt exhibiting drug seeking behavior.
[~2023-02-27 11:16] MED LIST changes: +LACTATED RINGERS 1,000 ML IV SCH; -REGADENOSON 0.4 MG/5 ML SYRINGE IV ONE
[2023-02-27 12:38] LABS: Glucose,Whole Blood 167 mg/dL (70-110)
[2023-02-27 12:39] VITALS: TEMP 97.8
[2023-02-27] MEDS ORDERED: IOPAMIDOL M200 10 ML VIAL ONE (13:03)
[2023-02-27] MEDS ORDERED: fentaNYL (PF) 50 MCG/ML 2 ML AMP ONE (13:03)
[2023-02-27] MEDS ORDERED: methylPREDNISolone ACETATE 40 MG/ML 1 ML VIAL ONE (13:03)
[2023-02-27] MEDS ORDERED: ROPIVACAINE 5MG/ML 20ML VIAL ONE (13:03)
[2023-02-27] MEDS ORDERED: MIDAZOLAM 2 MG/2 ML VIAL ONE (13:03)
[2023-02-27] MEDS ORDERED: IV FLUID CONTINUATION 600 ML IV ONE (13:27)
--- NOTE | 2023-02-27 13:27 | P.PCN ---
Date of Procedure: 02/27/23 Procedure(s) Performed: PREOPERATIVE DIAGNOSIS: 1-chronic ,and intractable abdominal pain. 2-chronic pancreatitis POSTOPERATIVE DIAGNOSIS: same as preoperative diagnosis PROCEDURE: Diagnostic celiac plexus block under fluoroscopy guidance (fluoroscopy images available in the Radiology Department ) ANESTHESIA: Moderate sedation with Versed 2 mg and Fentanyl 100 Mcg ( sedation started at 13 ;03 , ended at 13:19 ) EBL: Minimal PROCEDURE INDICATION: The patient has a history of abdominal pain secondary to chronic pancreatitis that is non responsive to more conservative treatments. PROCEDURE DESCRIPTION: The patient was seen and identified in the preoperative area. Risks, benefits, complications, and alternatives were discussed with the patient. The patient agreed to proceed with the procedure and signed the consent. IV was started, and vital signs were stable. Patient was taken to the OR and time out was completed.The patient was placed in the prone position on procedure table and a pillow was placed under the abdomen to reduce lumbar lordosis. The lumbosacral area was prepped and draped in the usual sterile fashion. Critical pause was taken. Vital signs were closely monitored during the procedure. Conscious sedation was used during the procedure to decrease patients anxiety. The procedure was performed in a similar fashion on the right side and on the left side. Using anterior-posterior fluoroscopy, the L1 spinous process and vertebral body were identified. Then, the fluoroscope was turned obliquely until the transverse process of L1 vertebra was totally behind the L1 vertebral body. Skin was then marked and infiltrated with Lidocaine 1% subcutaneously with a 25-guage needle at the level of the L1 vertebral body. Subsequently, a 22-guage 5-inch -inch spinal needles was inserted and advanced toward anterior side of the L1 vertebral body under oblique fluoroscopic guidance and while keeping a ``tunnel view of the needle. Subsequently, 3 ml of the water soluble dye Omnipaque was injected under life fluoroscopy to confirm needle position. The spread of the dye along the anterior side of the L1 vertebral body was verified with AP and latter fluoroscopy. After satisfactory positioning of the needle and negative aspiration for CSF, blood, or any other contents, a total of 15 mL of 0.5% preservative-free Ropivacaine mixed with 20 mg depomedrol PF , was injected with 5 ml increments and intermittent aspiration. Washout of the dye was seen and the needle was then withdrawn intact. Procedure was done bilaterally using the same technique on the right and left sides. A total of 30 ml of 0.5% preservative-free Ropivacaine mixed with 40 mg of depomedrol was used during the procedure.At the end of the procedure, the operated areas were cleaned. Band-Aids were applied. COMPLICATIONS: None DISPOSITION / PLANS: The patient was placed in a supine position and transferred to the recovery area in a stable condition for observation and was discharged from the recovery room after meeting discharge criteria.Home discharge instructions given to the patient by the staff.The patient was reexamined prior to discharge. We will schedule a neurolytic block in one week if patient has more than 50% pain relief from this block.
[2023-02-27 13:50] VITALS: PULSE 76; RESP 16
[2023-02-27 14:14] VITALS: BP 147/74
--- NOTE | 2023-02-27 14:29 | FL ---
EXAMINATION TYPE: FL guided pain mgmt statistic Intraoperative/procedural fluoroscopic services were provided. Total fluoroscopy time is 27.7 seconds with a total of 4 submitted images to PACS. Please s ee the operative/procedural note for further details. DAP: [id number] mGym2 Gycm2
== END 2023-02-27 14:13 | disposition home or self-care (01) ==
LOC: ORPAIN 11:16
PROVIDERS: ATTEND Specialist
DX: K86.1 Other chronic pancreatitis (principal); G89.29 Other chronic pain; E11.9 Type 2 diabetes mellitus without complications; Z88.1 Allergy status to other antibiotic agents; Z88.6 Allergy status to analgesic agent
CPT/HCPCS: 64530; 99152; J2250; J1030; J3010; Q9966; J2795

== ENCOUNTER → 2023-03-26 | Outpatient (CLI) | payer BC, MEDICARE ==
[2023-03-26 09:56] VITALS: BP 184/110; PULSE 76; RESP 15; TEMP 98.9
--- NOTE | 2023-03-26 11:03 | P.PAINPG ---
PQRS Measure Charge Sheet Comment: HISTORY OF PRESENT ILLNESS: A 62 yr old male presents today w severe and chronic pancreatitis secondary to history of ETOH overuse/ abuse for evaluation s/p Celiac Plexus Block #1. Pt states he experienced 0% pain relief x 3 wks s/p procedure. Pt states pain level is provoked at 9/10 in intensity, constant, localized in the epigastric region, sharp/ stabbing in character w occasional shooting pain towards the back. Pain is provoked by meal consumption. Pain is alleviated by medications, topical patches, heat, empty stomach and rest. He has extremely elevated BP today and states it is only due to pain and does not want to follow up w his PCP or go downstairs to the ER for it. He wants medications, showed me a bottle from Mar 19 of Raymond 10/325mg #18 NR from the ER and insists on receiving "something that helps" though he does not want Diclofenac tablets anymore. Pt has not followed up w psychiatry for mood/ behavioral issues/ history of substance abuse. Discussed pt's history of cannabis may have mind altering effects on mood/ behavior even though it can be used medically for chronic pain, but it absolutely can not be combined w narcotic medications. Interventional procedures include Celiac Plexus Block x1 Medications include Raymond 5/325mg, topical patches, THC products REVIEW OF ORGAN SYSTEMS: CONSTITUTIONAL: No fevers or chills. No recent weight loss. NEUROLOGICAL: + numbness and tingling along the distal extremities. No seizure disorders or headaches. MUSCULOSKELETAL: + pain PSYCHIATRIC: Denies current depression or suicidal thoughts. Physical Examinations : Constitutional : Cooperative , not in acute distress . Neurologic : Cranial nerve II to XII intact. No focal neurological deficits. Psychiatric : alert & oriented x 3. Matching mood & appropriate affect. Judgment & insight intact. Musculoskeletal : Epigastric/ LUQ TTP Cervical Spine Motor strength in the deltoid and biceps: Normal right side. Normal Left side Motor strength biceps and the wrist extensors: Normal right side . Normal left side Motor strength in the triceps muscle: Normal right side. Normal left side Deep tendon reflexes: Normal at the biceps. Normal at Brachioradialis. Normal at triceps Vertebral body tenderness to deep palpation over Cervical facet loading test: positive bilaterally Spurling test: positive bilaterally Neck distraction test: positive bilaterally Lenka sign: positive bilaterally Lumbar spine Motor strength lower extremities ,thigh and legs 5/5 Right side , 5/5 Left side Deep tendon reflexes : Normal Knee Jerk. Normal Ankle Jerk Vertebral body tenderness over Harper Test positive Lumbar facet Loading Test: positive Right / positive Left Range of motion of the lumbar spine Flexion 30 degrees, extension 10 degrees Straight Leg Raise test: Left/ Right positive at degree Inocencio test: positive right / positive left. Severe tenderness over the Sacroiliac joint on the Right / Left sides Gaenslen test: positive bilaterally Seated flexion test: positive bilaterally. Sacral spine : Severe tenderness over the Sacroiliac joint: right side / left side Range of motion: Flexion of the lumbar spine <60 degrees Range of motion: Extension of the lumbar spine <20 degrees Gaenslen's Test positive Inocencio test: positive right side / left side Thigh Thrust Test Sacral Thrust Test Imaging: CT noncontrast of abdomen from 01/14/23 reviewed Assessment/ Plan : Chronic Pancreatitis Recommendation of Splanchnic Nerve Block. May need a series of injections for optimal pain relief. Risks, benefits of procedure discussed and patient verbalized understanding. Admits to anti- coagulant use or medical history of diabetes. Protocol for discontinuation/ continuation of medications leslie procedure discussed. All questions answered. Urged compliance w follow up to PCP for elevated BP. Unsure if pt is on anti hypertensives as he interrupts me when asking to tell me how he needs pain medication due to his quality of life. Again, contact information to [facility] for history of alcohol overuse and alarming statements made that he may not be around for upcoming celiac nerve block. Discussed at length the value of life, self- worth, etc. I have spent greater than 30 minutes on patient care today. Dr Mayorga was available by phone for the evaluation of this patient. The time was used to review the medical records including relevant urine studies and Prescription history (MAPs), review of the available imaging, evaluation and examination of the patient, coordination of care with the medical staff and if applicable referring physicians, as well as creation of the medical record PQRS Narrative: Smoking Status Current every day smoker Hx Alcohol Use (MH) No Home Medications: Ambulatory Orders Insulin Lispro [humaLOG Kwikpen] See Protocol SQ AC-BID PRN 03/27/21 Metoprolol Succinate (ER) [Toprol Xl] 100 mg PO HS 01/25/22 Lactulose 30 gm PO BID 01/04/23 Acetaminophen Tab [Tylenol] 650 mg PO Q6H PRN 02/18/23 Pantoprazole Sodium [Protonix] 20 mg PO AC-BRKFST 02/18/23 traZODone HCL 100 mg PO HS 02/18/23 Diclofenac Sodium [Voltaren] 50 mg PO BID 02/25/23 Controlled Substance Measures - Controlled Substance Measures Is patient prescribed a controlled substance at discharge?: No
== END ==
LOC: PNWHC3 09:15
PROVIDERS: ATTEND Specialist
DX: K86.1 Other chronic pancreatitis (principal); F17.200 Nicotine dependence, unspecified, uncomplicated; Z88.6 Allergy status to analgesic agent; Z88.1 Allergy status to other antibiotic agents
CPT/HCPCS: 99211